=== PATIENT | male | born 1960 | race Two or more races ===

== ENCOUNTER → 2019-11-20 | Outpatient (CLI) | payer BC ==
--- NOTE | 2019-11-20 13:26 | CTL ---
EXAMINATION TYPE: CT Low Dose Lung DATE OF EXAM ORDERED: 11/20/2019 HISTORY: Personal history of tobacco use. Lung cancer screening CT DLP: [address] CTDI: 1.72 mGy Automated exposure control for dose reduction was used. SCREENING VISIT: Initial study COMPARISON: None TECHNIQUE: Low dose computed tomography scan was performed through the chest at 1 mm thick sections a nd reconstructed images in the coronal plane at [address] DIAGNOSTIC QUALITY: Satisfactory FINDINGS: LUNG NODULES: None of significance. Occasional micronodule or tiny calcified nodule/granuloma. For reference to the 3 mm right middle lob e nodule axial image 155 and 3 to 4 mm calcified nodule or granuloma anterior medial right upper lobe axial image 85. LUNGS: COPD: Severity: None Fibrosis: Severity: Mild linear bibasilar Lymph nodes: None Other findings: None BILATERAL PLEURAL SPACE: Effusion: None Calcification: None Thickening: None Pneumothorax: None HEART: Heart Size: Normal Coronary calcification: Mild proximal LAD Pericardial effusion: None OTHER FINDINGS: Upper abdomen: None Bony thorax: None Supraclavicular region: None Other: None IMPRESSION: No suspicious nodules greater than [address] CHEST RECOMMENDATION: Annual low-dose lung screening CT CT LUNG RAD: Lung-Rad 1 Negative
== END | disposition home or self-care (01) ==
LOC: RADCTMAIN 12:55
PROVIDERS: ATTEND Family Medicine
DX: Z12.2 Encounter for screening for malignant neoplasm of respiratory organs (principal); F17.210 Nicotine dependence, cigarettes, uncomplicated

== ENCOUNTER → 2021-10-24 | Outpatient (CLI) | payer BC ==
--- NOTE | 2021-10-24 10:30 | CTL ---
EXAMINATION TYPE: CT Low Dose Lung DATE OF EXAM ORDERED: 10/24/2021 HISTORY: 61-year-old male history of tobacco use. Z87.891 Personal history of nicotine dependence CT DLP: 66.[address] CTDI: 1.8 mGy Automated exposure control for dose reduction was used. SCREENING VISIT: Two-year follow-up COMPARISON: 11/20/2019 TECHNIQUE: Low dose computed tomography scan was performed through the chest with coronal and sagitta l reconstructions. CT DIAGNOSTIC QUALITY: Satisfactory FINDINGS: Heart normal size without pericardial effusion. Mild LAD coronary artery calcifications are present. Borderline ectasia aortic root at 3.5 cm. Conventional arch vessel branching anatomy. No thoracic lymphadenopathy by CT size criteria. Trace bilateral gynecomastia. Mild centrilobular emphysema. Mild biapical pleural parenchymal scarring. Some linear pleural parench ymal scarring also noted at the posterior costophrenic angles, unchanged from prior. No consolidation or pleural effusion. No suspicious greater than 4 mm pulmonary nodule is identified. Visualized upper abdomen shows no gross evaluate. Bones: Mild degenerative disc disease mid to lower thoracic spine. IMPRESSION: 1. LungRADS 1: negative. 2. COPD with mild emphysema and scattered pleural parenchymal scarring. Recommend smoking cessation. CT LUNG RAD AND CT CHEST RECOMMENDATION: Lung-Rad 1 Negative: Continue annual screening with LDCT in 12 months.
== END | disposition home or self-care (01) ==
LOC: RADCTMAIN 07:23
PROVIDERS: ATTEND Family Medicine
DX: Z12.2 Encounter for screening for malignant neoplasm of respiratory organs (principal); J43.9 Emphysema, unspecified; J98.4 Other disorders of lung; Z87.891 Personal history of nicotine dependence
CPT/HCPCS: 71271

== ENCOUNTER 2024-11-06 05:38 | Emergency (ER) | payer BC ==
--- NOTE | 2024-11-06 06:15 | ED ---
Abdominal Pain HPI - General Chief Complaint: Abdominal Pain Stated Complaint: Abd Pain Time Seen by Provider: 11/06/24 06:04 Source: patient Mode of arrival: ambulatory - History of Present Illness Initial Comments: This patient is 64-year-old man who states he has history of previous diverticulitis, and then had onset of lower abdominal pain a bit over a week ago. The patient had gone to see his primary physician, was given diagnosis of diverticulitis and had a week of metronidazole which she completed a couple of days ago. The patient states that he followed that by having an episode of vomiting that he described as yellow also bowel movements similar color. He states that he went back to eating and since that time has been having pain across the upper part of the abdomen and a full feeling. He states that over the past week to 10 days he has only passed a few small bowel movements he described as pellets. He has not had hematemesis. No bloody or tarry stools. No fever or chills noted. There has been no pain or mass in the groin or scrotum. No change in urination MD Complaint: abdominal pain Onset/Timin -: days(s) Location: periumbilical, LLQ, RLQ Radiation: none Migration to: LUQ, RUQ Severity: moderate Quality: cramping, fullness Consistency: intermittent Improves With: nothing Worsens With: eating Associated Symptoms: nausea, constipation - Related Data Home Medications Medication Instructions Recorded Confirmed No Known Home Medications 11/09/24 11/09/24 Allergies Allergy/AdvReac Type Severity Reaction Status Date / Time Penicillins Allergy Anaphylaxis Verified 11/10/24 13:33 Review of Systems ROS Statement: Those systems with pertinent positive or pertinent negative responses have been documented in the HPI. ROS Other: All systems not noted in ROS Statement are negative. Constitutional: Denies: fever, chills Respiratory: Denies: cough, dyspnea Cardiovascular: Denies: chest pain, palpitations Gastrointestinal: Reports: abdominal pain, nausea, vomiting, constipation. Denies: diarrhea, melena, hematochezia Genitourinary: Denies: dysuria, frequency, hematuria, testicular pain, testicular mass Musculoskeletal: Denies: back pain Skin: Denies: rash Neurological: Denies: headache, weakness Past Medical History Past Medical History: GERD/Reflux History of Any Multi-Drug Resistant Organisms: None Reported Past Surgical History: Appendectomy Past Psychological History: No Psychological Hx Reported Smoking Status: Former smoker Past Alcohol Use History: None Reported Past Drug Use History: None Reported General Exam General appearance: alert, in no apparent distress Head exam: Present: atraumatic, normocephalic Eye exam: Present: normal appearance. Absent: scleral icterus, conjunctival injection ENT exam: Present: normal oropharynx Neck exam: Present: normal inspection Respiratory exam: Present: normal lung sounds bilaterally. Absent: respiratory distress, wheezes, rales, rhonchi, stridor, accessory muscle use Cardiovascular Exam: Present: regular rate, normal rhythm, normal heart sounds. Absent: systolic murmur, diastolic murmur, rubs, gallop GI/Abdominal exam: Present: soft. Absent: distended, tenderness, guarding, rebound, rigid, mass, pulsatile mass, hernia Extremities exam: Present: normal inspection, normal capillary refill. Absent: pedal edema, calf tenderness Back exam: Present: normal inspection. Absent: CVA tenderness (R), CVA tenderness (L) Neurological exam: Present: alert Skin exam: Present: warm, dry, intact, normal color. Absent: rash Course Vital Signs 11/06/24 11/06/24 05:39 07:21 Temperature 98.5 F 98.7 F Pulse Rate 103 H 62 Respiratory 18 16 Rate Blood Pressure 156/96 133/83 O2 Sat by Pulse 98 97 Oximetry Medical Decision Making - Medical Decision Making Was pt. sent in by a medical professional or institution (ALONSO Maya, VERIFICATION LEAD, urgent care, hospital, or [facility]...) When possible be specific @ -[No] Did you speak to anyone other than the patient for history (EMS, parent, family, police, friend...)? What history was obtained from this source @ -[No] Did you review nursing and triage notes (agree or disagree)? Why? @ -[I reviewed and agree with nursing and triage notes] Were old charts reviewed (outside hosp., previous admission, EMS record, old EKG, old radiological studies, urgent care reports/EKG's, [facility] records)? Report findings @ -[No old charts were reviewed] Differential Diagnosis (chest pain, altered mental status, abdominal pain women, abdominal pain men, vaginal bleeding, weakness, fever, dyspnea, syncope, headache, dizziness, GI bleed, back pain, seizure, CVA, palpatations, mental health, musculoskeletal)? @ -[Differential Abdominal Pain Men: Appendicitis, cholecystitis, diverticulosis, ischemic bowel, pancreatitis, hepatitis, UTI, gastroenteritis, AAA, incarcerated hernia, bowel obstruction, constipation, inflammatory bowel, hepatitis, peptic ulcer disease, splenic infarction, perforated viscus, testicular torsion, this is not meant to be an all-inclusive list EKG interpreted by me (3pts min.). @ -[As above] X-rays interpreted by me (1pt min.). @ -[None done] CT interpreted by me (1pt min.). @ -[None done] U/S interpreted by me (1pt. min.). @ -[None done] What testing was considered but not performed or refused? (CT, X-rays, U/S, labs)? Why? @ -[CT scan was considered shared decision making with the patient was used and patient will defer, returning if he has worsening or no resolution of symptoms What meds were considered but not given or refused? Why? @ -[None] Did you discuss the management of the patient with other professionals (professionals i.e. , PA, VERIFICATION LEAD, lab, RT, psych nurse, manager social responsibility, infertility medical assistant, teacher, commanding officer traffic division, caser in)? Give summary @ -[No] Was smoking cessation discussed for >3mins.? @ -[No] Was critical care preformed (if so, how long)? @ -[No] Were there social determinants of health that impacted care today? How? (Homelessness, low income, unemployed, alcoholism, drug addiction, transportat ion, low edu. Level, literacy, decrease access to med. care, residential, rehab)? @ -[No] Was there de-escalation of care discussed even if they declined (Discuss DNR or withdrawal of care, Hospice)? DNR status @ -[No] What co-morbidities impacted this encounter? (DM, HTN, Smoking, COPD, CAD, Cancer, CVA, ARF, Chemo, Hep., AIDS, mental health diagnosis, sleep apnea, morbid obesity)? @ -[None] Was patient admitted / discharged? Hospital course, mention meds given and route, prescriptions, significant lab abnormalities, going to OR and other pertinent info. @ -[Patient is 64-year-old man presenting with abdominal pain. He does feel better with treatment here and would like to go home. We discussed possible etiologies as well as possibility of CT scan, and at this point he feels better and would like to go home. discussed appropriate further care and follow-up as well as return parameters. Undiagnosed new problem with uncertain prognosis? @ -[No] Drug Therapy requiring intensive monitoring for toxicity (Heparin, Nitro, Insulin, Cardizem)? @ -[No] Were any procedures done? @ -[No] Diagnosis/symptom? @ -[Acute abdominal pain Acute, or Chronic, or Acute on Chronic? @ -[Acute Uncomplicated (without systemic symptoms) or Complicated (systemic symptoms)? @ -[Uncomplicated Side effects of treatment? @ -[No] Exacerbation, Progression, or Severe Exacerbation? @ -[No] Poses a threat to life or bodily function? How? (Chest pain, [place], [place], pneumonia, PE, COPD, DKA, ARF, appy, cholecystitis, CVA, Diverticulitis, Homicidal, Suicidal, threat to staff... and all critical care pts) @ -[No] All treatments are based on ideal body weight as in ED triage - Lab Data Result diagrams: 11/06/24 06:00 11/06/24 06:00 Lab Results 11/06/24 11/06/24 11/06/24 Range/Units 06:00 06:00 06:00 WBC 10.4 (3.8-10.6) k/uL RBC 5.02 (4.30-5.90) m/uL Hgb 15.2 (13.0-17.5) gm/dL Hct 45.6 (39.0-53.0) % MCV 90.7 (80.0-100.0) fL MCH 30.3 (25.0-35.0) pg MCHC 33.4 (31.0-37.0) g/dL RDW 12.0 (11.5-15.5) % Plt Count 395 (150-450) k/uL MPV 6.6 Neutrophils % 78 % Lymphocytes % 13 % Monocytes % 5 % Eosinophils % 1 % Basophils % 0 % Neutrophils # 8.1 H (1.3-7.7) k/uL Lymphocytes # 1.3 (1.0-4.8) k/uL Monocytes # 0.5 (0-1.0) k/uL Eosinophils # 0.1 (0-0.7) k/uL Basophils # 0.0 (0-0.2) k/uL Sodium 135 L (137-145) mmol/L Potassium 4.3 (3.5-5.1) mmol/L Chloride 104 (98-107) mmol/L Carbon Dioxide 28 (22-30) mmol/L Anion Gap 3 mmol/L BUN 14 (9-20) mg/dL Creatinine 0.83 (0.66-1.25) mg/dL Est GFR (CKD-EPI)AfAm >90 (>60 ml/min/1.73 sqM) Est GFR (CKD-EPI)NonAf >90 (>60 ml/min/1.73 sqM) Glucose 102 H (74-99) mg/dL Plasma Lactic Acid Roe 0.7 (0.7-2.0) mmol/L Calcium 9.6 (8.4-10.2) mg/dL Total Bilirubin 0.7 (0.2-1.3) mg/dL AST 21 (17-59) U/L ALT 20 (4-49) U/L Alkaline Phosphatase 51 (38-126) U/L C-Reactive Protein 0.8 (<1.0) mg/dL Total Protein 7.0 (6.3-8.2) g/dL Albumin 4.3 (3.5-5.0) g/dL Amylase 69 (30-110) U/L Lipase 159 (23-300) U/L Disposition Clinical Impression: Abdominal pain Disposition: HOME SELF-CARE Condition: Good Instructions (If sedation given, give patient instructions): Abdominal Pain (ED) Is patient prescribed a controlled substance at d/c from ED?: No Referrals: Naseem Chung MD [Primary Care Provider] - 1-2 days Didi Foster MD [STAFF PHYSICIAN] - 1-2 days
[2024-11-06 06:16] LABS: Basophils % (A) 0 %; Eosinophils # (A) 0.1 k/uL (0-0.7); Eosinophils % (A) 1 %; HCT 45.6 % (39.0-53.0); HGB 15.2 gm/dL (13.0-17.5); Lymphocytes # (A) 1.3 k/uL (1.0-4.8); Lymphocytes % (A) 13 %; MCH 30.3 pg (25.0-35.0); MCHC 33.4 g/dL (31.0-37.0); MCV 90.7 fL (80.0-100.0); Mean Platelet Volume 6.6; Monocytes # (A) 0.5 k/uL (0-1.0); Monocytes % (A) 5 %; Neutrophils # (A) 8.1 k/uL (1.3-7.7); Neutrophils % (A) 78 %; Platelet Count 395 k/uL (150-450); RBC 5.02 m/uL (4.30-5.90); WBC 10.4 k/uL (3.8-10.6)
[2024-11-06 06:38] LABS: ALT 20 U/L (4-49); AST 21 U/L (17-59); African American GFR (CKD) >90 (>60 ml/min/1.73 sqM); Albumin 4.3 g/dL (3.5-5.0); Alkaline Phosphatase 51 U/L (38-126); Amylase 69 U/L (30-110); Anion Gap 3 mmol/L; Blood Urea Nitrogen 14 mg/dL (9-20); C Reactive Protein 0.8 mg/dL (<1.0); Calcium 9.6 mg/dL (8.4-10.2); Carbon Dioxide 28 mmol/L (22-30); Chloride 104 mmol/L (98-107); Glucose 102 mg/dL (74-99); Lipase 159 U/L (23-300); Non-African American GFR(CKD) >90 (>60 ml/min/1.73 sqM); Potassium 4.3 mmol/L (3.5-5.1); Sodium 135 mmol/L (137-145); Total Bilirubin 0.7 mg/dL (0.2-1.3)
[2024-11-06] MEDS: MAGNESIUM CITRATE 296 ML BOTTLE PO ONE (07:20)
[2024-11-06 07:23] VITALS: BP 133/83; PULSE 62; RESP 16; TEMP 98.7
== END 2024-11-06 07:28 | disposition home or self-care (01) ==
LOC: EC 05:38
DX: R10.31 Right lower quadrant pain (principal); R10.32 Left lower quadrant pain; R10.33 Periumbilical pain; Z88.0 Allergy status to penicillin; Z87.891 Personal history of nicotine dependence
CPT/HCPCS: 36415; 80053; 82150; 83605; 83690; 85025; 86140; 99284

== ENCOUNTER 2024-11-09 10:50 | Inpatient (IN) | payer BC ==
--- NOTE | 2024-11-09 10:56 | ED ---
General Adult HPI - General Source: patient Mode of arrival: ambulatory Limitations: no limitations <Vonda Calderon - Last Filed: 11/09/24 10:57> - General Source: patient, RN notes reviewed, old records reviewed <Arnoldo Ospina - Last Filed: 11/09/24 15:10> - General Stated complaint: Hypertension Time Seen by Provider: 11/09/24 10:56 - History of Present Illness Initial comments: Quick note: 64-year-old male presents to the emergency department sent in by his primary care provider's office. He was sent in for concerns of possible bowel obstruction. He reports that over the past week he has been having significant vomiting and difficulty tolerating oral intake. Patient admits to abdominal discomfort. (Vonda Calderon) Patient is a 64-year-old male presents emergency department complaining of abdominal pain. Patient has also been having intractable nausea and vomiting. Has been worse over the last 3 days but seems like he has been having issues for the last few weeks. Originally thought it might be diverticulitis and was placed on antibiotic by his PCP. States that symptoms did not improve with this. He is continuing to have nausea and vomiting. States he is noticing reduced caliber stools and is only having "little pellets" for the last few days. No diarrhea. Denies any blood in his vomit or stool. States he has had colonoscopies in the past which have been unremarkable. Last within the last few years. Endorses generalized abdominal discomfort and distention. Denies any chest pain or shortness of breath. Denies fevers or chills. Patient originally seen as a quick note. I evaluated patient when he was placed in a room. (Arnoldo Ospina) - Related Data Previous Rx's Medication Instructions Recorded Famotidine [Pepcid] 20 mg PO BID #14 tablet 11/06/24 Allergies Allergy/AdvReac Type Severity Reaction Status Date / Time Penicillins Allergy Anaphylaxis Verified 11/09/24 10:54 Review of Systems ROS Other: All systems not noted in ROS Statement are negative. <Vonda Calderon - Last Filed: 11/09/24 10:57> ROS Other: All systems not noted in ROS Statement are negative. <Arnoldo Ospina - Last Filed: 11/09/24 15:10> ROS Statement: Those systems with pertinent positive or pertinent negative responses have been documented in the HPI. Review of Systems: CONST: Denies fever EYES: Denies blurry vision ENT: Denies nasal congestion C/V: Denies Chest pain RESP: Denies shortness of breath GI: Endorses abdominal pain : Denies dysuria SKIN: Denies rash. MSK: Denies joint pain. NEURO: Denies headache (Arnoldo Ospina) Past Medical History Past Medical History: GERD/Reflux History of Any Multi-Drug Resistant Organisms: None Reported Past Surgical History: Appendectomy Past Psychological History: No Psychological Hx Reported Smoking Status: Former smoker Past Alcohol Use History: None Reported Past Drug Use History: None Reported <Vonda Calderon - Last Filed: 11/09/24 10:57> General Exam Limitations: no limitations <Vonda Calderon - Last Filed: 11/09/24 10:57> <Arnoldo Ospina - Last Filed: 11/09/24 15:10> - General Exam Comments Initial Comments: Visual Physical Exam Vital signs reviewed General: Well-appearing, nontoxic, no acute distress. Head: Normocephalic, atraumatic Eyes: PERRLA, EOMI ENT: Airway patent Chest: Nonlabored breathing Skin: No visual rash, normal skin tone Neuro: Alert and oriented 3 Musculoskeletal: No gross abnormalities (Vonda Calderon) General: Appears in mild to moderate distress secondary to abdominal pain. HEAD: Normal with no signs of head trauma. EYES: EOMI ENT: Hearing grossly intact, normal oropharynx. RESPIRATORY: Clear breath sounds bilaterally. No wheezes, rales, or rhonchi. C/V: Regular rate and rhythm. S1 and S2 auscultated, no edema, peripheral pulses 2+ and intact throughout ABD: Abdomen soft, with generalized distention and nonfocal tenderness to palpation. No guarding or rebound tenderness. No peritoneal signs. EXT: no obvious deformity SKIN: No rashes or lesions observed on exposed skin. NEURO: Alert and oriented x 4. (Arnoldo Ospina) Course Vital Signs 11/09/24 10:51 Temperature 99 F Pulse Rate 112 H Respiratory 20 Rate Blood Pressure 156/94 O2 Sat by Pulse 100 Oximetry Medical Decision Making <Vonda Calderon - Last Filed: 11/09/24 10:57> - Lab Data Result diagrams: 11/09/24 11:30 11/09/24 11:30 <[email or web address] - Last Filed: 11/09/24 15:10> - Medical Decision Making Quick note preformed and electronically signed by ALONSO Hammer-Azalia (Vonda Calderon) Was pt. sent in by a medical professional or institution (ALONSO Maya, NEUROLOGY PHYSICIAN, urgent care, hospital, or skilled nursing...) When possible be specific @ -No Did you speak to anyone other than the patient for history (EMS, parent, family, police, friend...)? What history was obtained from this source @ -No Did you review nursing and triage notes (agree or disagree)? Why? @ -I reviewed and agree with nursing and triage notes Were old charts reviewed (outside hosp., previous admission, EMS record, old EKG, old radiological studies, urgent care reports/EKG's, skilled nursing records)? Report findings @ -No old charts were reviewed Differential Diagnosis (chest pain, altered mental status, abdominal pain women, abdominal pain men, vaginal bleeding, weakness, fever, dyspnea, syncope, headache, dizziness, GI bleed, back pain, seizure, CVA, palpatations, mental health, musculoskeletal)? @ -Differential Abdominal Pain Men: Appendicitis, cholecystitis, diverticulosis, ischemic bowel, pancreatitis, hepatitis, UTI, gastroenteritis, AAA, incarcerated hernia, bowel obstruction, constipation, inflammatory bowel, hepatitis, peptic ulcer disease, splenic infarction, perforated viscus, testicular torsion, this is not meant to be an all-inclusive list EKG interpreted by me (3pts min.). @ -None none X-rays interpreted by me (1pt min.). @ -None done CT interpreted by me (1pt min.). @ -CT reveals possible sigmoid colon mass with partial small bowel obstruction and findings as well as colitis. U/S interpreted by me (1pt. min.). @ -None done What testing was considered but not performed or refused? (CT, X-rays, U/S, labs)? Why? @ -None What meds were considered but not given or refused? Why? @ -None Did you discuss the management of the patient with other professionals (professionals i.e. ALONSO Maya, NEUROLOGY PHYSICIAN, lab, RT, psych nurse, social services aide, copy center operator, teacher, natural resource officer, field nurse case manager)? Give summary @ -Discussed with patient's surgeon who his complete his colonoscopy is, Dr. Yang who was in agreement with plan with admission medicine, antibiotics, n.p.o., NG tube. Discussed with the admitting provider, Dr. Crawford who accepts the admission. Was smoking cessation discussed for >3mins.? @ -No Was critical care preformed (if so, how long)? @ -No Were there social determinants of health that impacted care today? How? (Homelessness, low income, unemployed, alcoholism, drug addiction, transportation, low edu. Level, literacy, decrease access to med. care, group home, rehab)? @ -No Was there de-escalation of care discussed even if they declined (Discuss DNR or withdrawal of care, Hospice)? DNR status @ -No What co-morbidities impacted this encounter? (DM, HTN, Smoking, COPD, CAD, Cancer, CVA, ARF, Chemo, Hep., AIDS, mental health diagnosis, sleep apnea, morbid obesity)? @ -None Was patient admitted / discharged? Hospital course, mention meds given and route, prescriptions, significant lab abnormalities, going to OR and other pertinent info. @ -Based on patient's presentation and physical exam, presents with abdominal distention, nausea and vomiting, abdominal pain that is intractable. Vital signs within acceptable limits. Patient originally seen as a quick note worked up in the waiting room when I evaluated patient was placed in a hallway bed. Labs returned remarkable for no obvious significant findings. Likely some dehydration. CT abdomen pelvis reveals a possible sigmoid colon mass, colitis, as well as findings consistent with some degree of small bowel obstruction. I updated The patient. He will be started on IV fluids, IV antibiotics, and given IV Zofran, pain meds. NG tube will be placed due to the distention. Patient was in agreement this plan. Discussed with patient's surgeon who his complete his colonoscopy is, Dr. Yang who was in agreement with plan with admission medicine, antibiotics, n.p.o., NG tube. Discussed with the admitting provider, Dr. Crawford who accepts the admission. Undiagnosed new problem with uncertain prognosis? @ -No Drug Therapy requiring intensive monitoring for toxicity (Heparin, Nitro, Insulin, Cardizem)? @ -No Were any procedures done? @ -No Diagnosis/symptom? @ -Colitis, partial small bowel obstruction, possible sigmoid colon mass Acute, or Chronic, or Acute on Chronic? @ -Acute Uncomplicated (without systemic symptoms) or Complicated (systemic symptoms)? @ -Complicated Side effects of treatment? @ -No Exacerbation, Progression, or Severe Exacerbation? @ -No Poses a threat to life or bodily function? How? (Chest pain, [place], [place], pneumonia, PE, COPD, DKA, ARF, appy, cholecystitis, CVA, Diverticulitis, Homicidal, Suicidal, threat to staff... and all critical care pts) @ -Yes (Arnoldo Ospina) - Lab Data Lab Results 11/09/24 11/09/24 11/09/24 Range/Units 11:30 11:30 11:30 WBC 9.4 (3.8-10.6) k/uL RBC 5.84 (4.30-5.90) m/uL Hgb 17.6 H (13.0-17.5) gm/dL Hct 52.3 (39.0-53.0) % MCV 89.6 (80.0-100.0) fL MCH 30.1 (25.0-35.0) pg MCHC 33.6 (31.0-37.0) g/dL RDW 11.9 (11.5-15.5) % Plt Count 451 H (150-450) k/uL MPV 7.1 Neutrophils % (Manual) 86 % Lymphocytes % (Manual) 5 % Monocytes % (Manual) 9 % Neutrophils # (Manual) 8.08 H (1.3-7.7) k/uL Lymphocytes # (Manual) 0.47 L (1.0-4.8) k/uL Monocytes # (Manual) 0.85 (0-1.0) k/uL Nucleated RBCs 0 (0-0) /100 WBC Manual Slide Review Performed Hypersegmented Neuts Present RBC Morphology Normal Sodium 136 L (137-145) mmol/L Potassium 4.9 (3.5-5.1) mmol/L Chloride 95 L (98-107) mmol/L Carbon Dioxide 28 (22-30) mmol/L Anion Gap 13 mmol/L BUN 28 H (9-20) mg/dL Creatinine 0.92 (0.66-1.25) mg/dL Est GFR (CKD-EPI)AfAm >90 (>60 ml/min/1.73 sqM) Est GFR (CKD-EPI)NonAf 88 (>60 ml/min/1.73 sqM) Glucose 119 H (74-99) mg/dL Plasma Lactic Acid Roe 1.8 (0.7-2.0) mmol/L Calcium 10.2 (8.4-10.2) mg/dL Total Bilirubin 0.8 (0.2-1.3) mg/dL AST 27 (17-59) U/L ALT 21 (4-49) U/L Alkaline Phosphatase 66 (38-126) U/L Total Protein 8.3 H (6.3-8.2) g/dL Albumin 5.0 (3.5-5.0) g/dL Amylase 65 (30-110) U/L Lipase 136 (23-300) U/L Disposition <Vonda Calderon - Last Filed: 11/09/24 10:57> Time of Disposition: 14:43 <Arnoldo Ospina - Last Filed: 11/09/24 15:10> Clinical Impression: Partial small bowel obstruction, Colitis Disposition: ADMITTED IP TO THIS HOSP Condition: Stable Referrals: Naseem Chung MD [Primary Care Provider] - 1-2 days
[2024-11-09 11:56] LABS: ALT 21 U/L (4-49); AST 27 U/L (17-59); African American GFR (CKD) >90 (>60 ml/min/1.73 sqM); Alkaline Phosphatase 66 U/L (38-126); Amylase 65 U/L (30-110); Anion Gap 13 mmol/L; Blood Urea Nitrogen 28 mg/dL (9-20); Calcium 10.2 mg/dL (8.4-10.2); Carbon Dioxide 28 mmol/L (22-30); Chloride 95 mmol/L (98-107); Glucose 119 mg/dL (74-99); Lipase 136 U/L (23-300); Non-African American GFR(CKD) 88 (>60 ml/min/1.73 sqM); Potassium 4.9 mmol/L (3.5-5.1); Sodium 136 mmol/L (137-145); Total Bilirubin 0.8 mg/dL (0.2-1.3); Total Protein 8.3 g/dL (6.3-8.2)
[2024-11-09 12:02] LABS: HCT 52.3 % (39.0-53.0); HGB 17.6 gm/dL (13.0-17.5); MCH 30.1 pg (25.0-35.0); MCHC 33.6 g/dL (31.0-37.0); MCV 89.6 fL (80.0-100.0); Mean Platelet Volume 7.1; Platelet Count 451 k/uL (150-450); RBC 5.84 m/uL (4.30-5.90); RDW 11.9 % (11.5-15.5); WBC 9.4 k/uL (3.8-10.6)
[2024-11-09 12:19] LABS: Lymphocytes # (M) 0.47 k/uL (1.0-4.8); Monocytes # (M) 0.85 k/uL (0-1.0); Neutrophils # (M) 8.08 k/uL (1.3-7.7); Neutrophils % (M) 86 %; Nucleated Red Blood Cells 0 /100 WBC (0-0); Total Cells Counted 100
[2024-11-09 12:20] LABS: Hypersegmented Neutrophils Present; RBC Morphology Normal
--- NOTE | 2024-11-09 13:17 | CT ---
EXAMINATION TYPE: CT abdomen pelvis w con DATE OF EXAM: 11/09/2024 12:30 PM COMPARISON: CT abdomen pelvis most recent from 01/07/2016 CLINICAL INDICATION: Male, 64 years old with history of abdominal pain; vomiting TECHNIQUE: Axial CT abdomen pelvis w con;Sagittal and coronal reformats were created on a separate w orkstation. Contrast used:100 mL of Isovue 300 with IV Contrast, (none if empty) Oral contrast used: without Oral Contrast (none if empty) CT DLP: 569.1 mGycm, Automated exposure control for dose reduction was used. FINDINGS: LOWER CHEST: Unremarkable ABDOMEN LIVER: Appearing liver cysts. GALLBLADDER AND BILE DUCTS: Unremarkable. PANCREAS: Unremarkable. SPLEEN: Unremarkable. ADRENAL GLANDS: Unremarkable. KIDNEYS AND URETERS: No evidence of hydronephrosis or renal calculus. The ureters are unremarkable. S imple appearing bilateral renal cysts. PELVIS BLADDER: No evidence for wall thickening or mass given limitations of exam. REPRODUCTIVE: Unremarkable. ABDOMEN & PELVIS STOMACH AND BOWEL: Small hiatal hernia. Circumferential wall thickening of the sigmoid colon extendin g 8.8 cm with villarreal measuring up to 11 mm upstream this results in dilation of the large and small ulices wel upstream suggesting some degree of obstruction correlate with stool output. Possible mass present series 202 image 35 series 203 image 82 measuring 27 x 21 mm PERITONEUM/RETROPERITONEUM: No evidence of pneumoperitoneum or free fluid. VASCULATURE: No evidence of aortic aneurysm. MUSCULOSKELETAL: No acute osseous abnormalities LYMPH NODES: No gross evidence for lymphadenopathy. SOFT TISSUE/ABDOMINAL WALL: Unremarkable IMPRESSION: 1. Possible mass present series with superimposed colitis involving the sigmoid colon with upstream dilation of small and large bowel suggesting some degree of obstruction correlate with stool output. Short-term follow-up CT recommended to ensure resolution or a short-term follow-up colonoscopy if not recently performed. 2. Small hiatal hernia. [facility], , 11/09/2024 1:15 PM
[2024-11-09] MEDS ORDERED: NALOXONE 0.4 MG/ML 1 ML VIAL IV PRN (14:40)
[2024-11-09] MEDS ORDERED: ONDANSETRON 4 MG/2 ML VIAL IVP PRN (14:40)
[2024-11-09] MEDS: ONDANSETRON 4 MG/2 ML VIAL IVP STA (15:41)
[2024-11-09] MEDS: KETOROLAC 15 MG/ML 1 ML VIAL IVP STA (15:42)
[2024-11-09] MEDS: PANTOPRAZOLE 40 MG/10 ML VIAL IVP STA (15:42)
[2024-11-09] MEDS: LACTATED RINGERS 1,000 ML BAG IV STA (15:43)
--- NOTE | 2024-11-09 16:05 | P.HPIM ---
History of Present Illness H&P Date: 11/09/24 Chief Complaint: abdominal pain, nausea, vomiting 64-year-old man with medical history of GERD, diverticulitis presented for evaluation of abdominal pain, nausea, vomiting. Patient says that approximately 2 weeks ago he started develop some left lower quadrant abdominal pain that felt similar to the previous time that he had diverticulitis. At that time he had associated symptoms of nausea, vomiting. He was prescribed some antibiotics from his primary care physician and said he felt a little bit better after taking these, is not sure which antibiotics these were. However, after discontinuation, patient started to feel ill again. He went to the emergency room on 11/06 for similar complaints and was discharged with famotidine and instructed follow-up with his primary care physician as well as GI. Unfortunately his symptoms progressed in the last 72 hours prompting patient to return to the emergency room. He reports nausea, vomiting, sweats, weight loss, poor appetite. He did have a bowel movement but it was very small in caliber. He feels bloated. In the emergency room, patient was afebrile, 156/94, heart rate 112, 100% on room air. CBC shows polycythemia to 17.6, thrombocytosis to 451. Metabolic panel shows sodium of 136, chloride of 95, BUN of 28. Liver function test show total protein of 8.3. Lipase is 136. Abdominal CT shows possible mass present with superimposed colitis involving the sigmoid colon with upstream dilation of the small and large bowel suggesting some degree of obstruction. Case was discussed with the emergency room and decision was made to admit the patient for further evaluation. Surgery was consulted. All Systems reviewed and pertinent positives and negatives noted in HPI, all other symptoms are negative Gen: In NAD, non-toxic HEENT: normocephalic, atraumatic, hearing acuity is intant, mucous membranes m oist CVS: perfusing all extremities well, no pitting edema, Respiratory: symmetric chest expansion, no accessory muscle use, GI: soft, NTTP, ND, : no suprapubic tenderness, no CVA tenderness MSK/Derm: no rashes, cyanosis Neuro: CN II-XII intact, no motor weakness, Psych: cooperative, euthymic mood, judgment and insight is intact Labs and imaging as above Assessment/plan: Sigmoid colitis Possible colonic mass Partial large bowel obstruction -Admit as an inpatient -Antibiotics with ciprofloxacin, Flagyl -General Surgery consult for colonoscopy with biopsy -Stool culture pending -IV fluids -NG tube, n.p.o. History of GERD -PPI daily Patient is full code Past Medical History Past Medical History: GERD/Reflux History of Any Multi-Drug Resistant Organisms: None Reported Past Surgical History: Appendectomy Past Psychological History: No Psychological Hx Reported Smoking Status: Former smoker Past Alcohol Use History: None Reported Past Drug Use History: None Reported Medications and Allergies Home Medications Medication Instructions Recorded Confirmed Type No Known Home Medications 11/09/24 11/09/24 History Allergies Allergy/AdvReac Type Severity Reaction Status Date / Time Penicillins Allergy Anaphylaxis Verified 11/09/24 15:10 Physical Exam Osteopathic Statement: *. No significant issues noted on an osteopathic structural exam other than those noted in the History and Physical/Consult. Vitals: Vital Signs Temp Pulse Resp BP Pulse Ox 11/09/24 10:51 99 F 112 H 20 156/94 100 Intake and Output 11/09/24 11/09/24 11/09/24 06:59 14:59 22:59 Other: Weight 68.039 kg Results CBC & Chem 7: 11/09/24 11:30 11/09/24 11:30 Labs: Abnormal Lab Results - Last 24 Hours (Table) 11/09/24 11/09/24 Range/Units 11:30 11:30 Hgb 17.6 H (13.0-17.5) gm/dL Plt Count 451 H (150-450) k/uL Neutrophils # (Manual) 8.08 H (1.3-7.7) k/uL Lymphocytes # (Manual) 0.47 L (1.0-4.8) k/uL Sodium 136 L (137-145) mmol/L Chloride 95 L (98-107) mmol/L BUN 28 H (9-20) mg/dL Glucose 119 H (74-99) mg/dL Total Protein 8.3 H (6.3-8.2) g/dL
[2024-11-09] MEDS: LEVOFLOXACIN 500MG-D5W PMX 500 MG in DEXTROSE/WATER 1 100ML.BAG IVPB SCH (17:21)
[2024-11-09] MEDS: LACTATED RINGERS 1,000 ML IV ONE (17:24)
[2024-11-09] MEDS: metroNIDAZOLE-NS PMX 500 MG in SALINE 1 100ML.BAG IVPB SCH (17:27)
--- NOTE | 2024-11-09 17:40 | XR ---
EXAMINATION TYPE: XR chest 1V confirm line plcmt DATE OF EXAM: 11/09/2024 5:16 PM COMPARISON: Chest radiographs from 1321 CLINICAL INDICATION: Male, 64 years old with history of NGT placement confirmation; [facility] TECHNIQUE: XR chest 1V confirm line plcmt Frontal view of the chest. FINDINGS: Lungs/Pleura: There is no evidence of pleural effusion, focal consolidation, or pneumothorax. Pulmonary vascularity: Unremarkable. Heart/mediastinum: Cardiomediastinal silhouette is unremarkable. Musculoskeletal: No acute osseous pathology. Other findings: None Lines/Tubes: Nasogastric tube with side-port projecting over the distal esophagus. IMPRESSION: Nasogastric tube side-port in the distal esophagus advance a 10 cm recommended for optimal placement. No acute cardiopulmonary disease/process. [facility], , 11/09/2024 5:38 PM
[2024-11-09] MEDS: MORPHINE SULFATE 4 MG/ML SYRINGE IV PRN (17:51)
--- NOTE | 2024-11-09 18:23 | XR ---
EXAMINATION TYPE: XR chest 1V confirm line plcmt DATE OF EXAM: 11/09/2024 5:56 PM COMPARISON: Chest radiographs from 11/09/2024 CLINICAL INDICATION: Male, 64 years old with history of NGT advanced, confirm placement; [facility] TECHNIQUE: XR chest 1V confirm line plcmt Frontal view of the chest. FINDINGS: Lungs/Pleura: There is no evidence of pleural effusion, focal consolidation, or pneumothorax. Pulmonary vascularity: Unremarkable. Heart/mediastinum: Cardiomediastinal silhouette is unremarkable. Musculoskeletal: No acute osseous pathology. Lines/Tubes: Endotracheal tube side-porrt at the gastroesophageal junction. IMPRESSION: Nasogastric tube should be advanced 7 cm for optimal placement. [facility], , 11/09/2024 6:21 PM
[2024-11-09] MEDS: CIPROFLOXACIN/DEXTROSE PMX 400 MG in DEXTROSE/WATER 1 200ML.BAG IVPB SCH (18:39)
[2024-11-10] MEDS: SODIUM CHLORIDE 0.9% 1,000 ML IV SCH (06:32)
--- NOTE | 2024-11-10 07:47 | P.GSCN ---
History of Present Illness Consult date: 11/10/24 Reason for Consult: Colon obstruction History of present illness: 64-year-old male known to our service. Patient with progressive complaints of abdominal bloating and pain. Decreased bowel function. CAT scan shows partial colonic obstruction at the sigmoid colon. Patient was treated for possible diverticulitis with antibiotics by his primary care physician. Had a colonoscopy apparently a little over 1 year ago by myself I cannot find that report it was performed at [facility]. Per patient no definite abnormalities were identified. White blood cell count is normal. Patient appears nontoxic. Review of Systems The patient denies any acute changes in vision or hearing, no dysphagia or marco a nophagia, no chest pain or shortness of breath, no dysuria or hematuria, no headache, no runny nose, no rectal bleeding or melena, no unexplained weight loss Past Medical History Past Medical History: GERD/Reflux History of Any Multi-Drug Resistant Organisms: None Reported Past Surgical History: Appendectomy Past Psychological History: No Psychological Hx Reported Smoking Status: Former smoker Past Alcohol Use History: None Reported Past Drug Use History: None Reported Medications and Allergies Home Medications Medication Instructions Recorded Confirmed Type No Known Home Medications 11/09/24 11/09/24 History Allergies Allergy/AdvReac Type Severity Reaction Status Date / Time Penicillins Allergy Anaphylaxis Verified 11/09/24 15:10 Surgical - Exam Vital Signs Temp Pulse Resp BP Pulse Ox 99 F 112 H 20 156/94 100 11/09/24 10:51 11/09/24 10:51 11/09/24 10:51 11/09/24 10:51 11/09/24 10:51 Physical exam: General: Well-developed, well-nourished HEENT: Normocephalic, sclerae nonicteric Abdomen: Distended, mild diffuse tenderness Extremities: No edema Neuro: Alert and oriented Results - Labs 11/09/24 11:30 11/09/24 11:30 Abnormal Lab Results - Last 24 Hours (Table) 11/09/24 11/09/24 Range/Units 11:30 11:30 Hgb 17.6 H (13.0-17.5) gm/dL Plt Count 451 H (150-450) k/uL Neutrophils # (Manual) 8.08 H (1.3-7.7) k/uL Lymphocytes # (Manual) 0.47 L (1.0-4.8) k/uL Sodium 136 L (137-145) mmol/L Chloride 95 L (98-107) mmol/L BUN 28 H (9-20) mg/dL Glucose 119 H (74-99) mg/dL Total Protein 8.3 H (6.3-8.2) g/dL Diabetes panel 11/09/24 Range/Units 11:30 Sodium 136 L (137-145) mmol/L Potassium 4.9 (3.5-5.1) mmol/L Chloride 95 L (98-107) mmol/L Carbon Dioxide 28 (22-30) mmol/L BUN 28 H (9-20) mg/dL Creatinine 0.92 (0.66-1.25) mg/dL Glucose 119 H (74-99) mg/dL Calcium 10.2 (8.4-10.2) mg/dL AST 27 (17-59) U/L ALT 21 (4-49) U/L Alkaline Phosphatase 66 (38-126) U/L Total Protein 8.3 H (6.3-8.2) g/dL Albumin 5.0 (3.5-5.0) g/dL Calcium panel 11/09/24 Range/Units 11:30 Calcium 10.2 (8.4-10.2) mg/dL Albumin 5.0 (3.5-5.0) g/dL Pituitary panel 11/09/24 Range/Units 11:30 Sodium 136 L (137-145) mmol/L Potassium 4.9 (3.5-5.1) mmol/L Chloride 95 L (98-107) mmol/L Carbon Dioxide 28 (22-30) mmol/L BUN 28 H (9-20) mg/dL Creatinine 0.92 (0.66-1.25) mg/dL Glucose 119 H (74-99) mg/dL Calcium 10.2 (8.4-10.2) mg/dL Adrenal panel 11/09/24 Range/Units 11:30 Sodium 136 L (137-145) mmol/L Potassium 4.9 (3.5-5.1) mmol/L Chloride 95 L (98-107) mmol/L Carbon Dioxide 28 (22-30) mmol/L BUN 28 H (9-20) mg/dL Creatinine 0.92 (0.66-1.25) mg/dL Glucose 119 H (74-99) mg/dL Calcium 10.2 (8.4-10.2) mg/dL Total Bilirubin 0.8 (0.2-1.3) mg/dL AST 27 (17-59) U/L ALT 21 (4-49) U/L Alkaline Phosphatase 66 (38-126) U/L Total Protein 8.3 H (6.3-8.2) g/dL Albumin 5.0 (3.5-5.0) g/dL Assessment and Plan (1) Colon obstruction Narrative/Plan: 64-year-old male with partial colonic obstruction by CAT scan. Etiology unclear. Will proceed with flexible sigmoidoscopy at this time. Patient may require sigmoid resection. Current Visit: Yes Status: Acute Code(s): K56.609 - UNSP INTESTNL OBST, UNSP TO PARTIAL VERSUS COMPLETE OBST SNOMED Code(s): 83516683
--- NOTE | 2024-11-10 08:21 | P.PCN ---
Date of Procedure: 11/10/24 Procedure(s) Performed: PREOPERATIVE DIAGNOSIS: Partial colonic obstruction POSTOPERATIVE DIAGNOSIS: Same, diverticulosis PROCEDURE: Sigmoidoscopy ANESTHESIA: MAC SURGEON: Luke Yang M.D. SPECIMENS: None ENDOSCOPIC PROCEDURE: The patient was placed on the endoscopy table in the left decubitus position. The Olympus colonoscope was inserted into the anus and passed under direct visualization to the site of obstruction. At the transition point there was some edematous mucosa. No ulceration of the mucosa was visualized. Unclear whether this represented an atypical malignancy or diverticular change. The scope was able to be passed through that area with some challenges into the wide open bilious stool stained descending colon. Air was evacuated. The entirety of the sigmoid colon appeared somewhat narrowed and less distensible as normal. A few scattered diverticular orifices were seen th roughout the sigmoid colon. Some hard stool in the rectum was evacuated manually. Digital rectal examination was normal. The patient was taken to the recovery room in stable condition per anesthesia guidelines. RECOMMENDATIONS: Will discuss endoscopic findings with patient. The patient's CAT scan particularly on the coronal images does suggest the potential for the site of obstruction being secondary to mass lesion. Given the chronicity of his symptoms and the outpatient trial of antibiotics without improvement I would favor surgical intervention at this time. Discussed with patient the option of exploratory laparotomy with possible segmental resection and possible ostomy before we started the endoscopic procedure. Will allow the sedation to wear off and discuss this further with the patient. Continue antibiotics for now. Keep n.p.o. with gastric decompression.
[2024-11-10 08:58] LABS: ALT 14 U/L (10-49); AST 16 U/L (14-35); Albumin 3.5 g/dL (3.8-4.9); Albumin/Globulin Ratio 1.59 Ratio (1.60-3.17); Alkaline Phosphatase 47 U/L (41-126); BUN/Creat Ratio 29.75 Ratio (12.00-20.00); Blood Urea Nitrogen 23.8 mg/dL (9.0-27.0); Calcium 8.9 mg/dL (8.7-10.3); Carbon Dioxide 26.1 mmol/L (21.6-31.8); Chloride 103 mmol/L (96-109); Globulin 2.2 g/dL (1.6-3.3); Glucose 89 mg/dL (70-110); Potassium 4.2 mmol/L (3.5-5.5); Sodium 139 mmol/L (135-145); Total Bilirubin 0.6 mg/dL (0.3-1.2); Total Protein 5.7 g/dL (6.2-8.2)
[2024-11-10] MEDS: PANTOPRAZOLE 40 MG/10 ML VIAL IV SCH (09:19)
[2024-11-10 09:22] LABS: Basophils # (A) 0.02 X 10*3/uL (0.00-0.10); Basophils % (A) 0.3 %; Eosinophils # (A) 0.05 X 10*3/uL (0.04-0.35); Eosinophils % (A) 0.6 %; HCT 42.9 % (39.6-50.0); HGB 14.1 g/dL (13.0-17.0); Lymphocytes # (A) 1.03 X 10*3/uL (0.90-5.00); Lymphocytes % (A) 12.9 %; MCH 29.1 pg (27.0-32.0); MCHC 32.9 g/dL (32.0-37.0); MCV 88.6 FL (80.0-97.0); Monocytes # (A) 1.19 X 10*3/uL (0.20-1.00); Monocytes % (A) 14.9 %; NRBC Per 100 WBC 0 X 10*3/uL (0.00-0.01); Neutrophils # (A) 5.69 X 10*3/uL (1.80-7.70); Platelet Count 315 X 10*3/uL (140-440); RBC 4.84 X 10*6/uL (4.40-5.60); RDW 12.5 % (11.5-14.5)
--- NOTE | 2024-11-10 09:33 | P.PN ---
Subjective Progress Note Date: 11/10/24 No new complaints. S/P sigmoidoscopy today which does show some narrowing of the sigmoid possibly from mass as suggested on CT scan. Reviewed procedure note and findings - pt likely needs ex lap with sigmoidectomy and ostomy. Further surgical plan pending discussion with patient. Gen: In NAD, non-toxic HEENT: normocephalic, atraumatic, hearing acuity is intant, mucous membranes moist CVS: perfusing all extremities well, no pitting edema, Respiratory: symmetric chest expansion, no accessory muscle use, GI: soft, NTTP, ND, : no suprapubic tenderness, no CVA tenderness MSK/Derm: no rashes, cyanosis Neuro: CN II-XII intact, no motor weakness, Psych: cooperative, euthymic mood, judgment and insight is intact Hospital Course: 64-year-old man with medical history of GERD, diverticulitis presented for evaluation of abdominal pain, nausea, vomiting. In the emergency room, patient was afebrile, 156/94, heart rate 112, 100% on room air. CBC shows polycythemia to 17.6, thrombocytosis to 451. Metabolic panel shows sodium of 136, chloride of 95, BUN of 28. Liver function test show total protein of 8.3. Lipase is 136. Abdominal CT shows possible mass present with superimposed colitis involving the sigmoid colon with upstream dilation of the small and large bowel suggesting some degree of obstruction. Case was discussed with the emergency room and decision was made to admit the patient for further evaluation. Surgery was consulted. Assessment/plan: Sigmoid colitis Colonic mass Partial large bowel obstruction -Admit as an inpatient -Antibiotics with ciprofloxacin, Flagyl -General Surgery consult, recs appreciated -Stool culture pending -IV fluids -NG tube, n.p.o. History of GERD -PPI daily Patient is full code Objective - Vital Signs Vital signs: Vital Signs Temp 98.5 F 11/10/24 06:43 Pulse 84 11/10/24 06:43 Resp 14 11/10/24 06:43 BP 123/75 11/10/24 06:43 Pulse Ox 98 11/10/24 06:43 FiO2 Intake & Output 11/09/24 11/10/24 11/10/24 18:59 06:59 18:59 Intake Total 700 Output Total 500 Balance -500 700 Weight 68.039 kg 68.039 kg Intake: IV 700 Output: Gastric Drainage 200 Urine 300 Other: Voiding Method Urinal - Labs CBC & Chem 7: 11/10/24 04:42 11/10/24 04:42 Labs: Abnormal Lab Results - Last 24 Hours (Table) 11/09/24 11/09/24 11/10/24 Range/Units 11:30 11:30 04:42 Hgb 17.6 H (13.0-17.5) gm/dL Plt Count 451 H (150-450) k/uL MPV 9.0 L (9.5-12.2) FL Neutrophils # (Manual) 8.08 H (1.3-7.7) k/uL Lymphocytes # (Manual) 0.47 L (1.0-4.8) k/uL Monocytes # 1.19 H (0.20-1.00) X 10*3/uL Sodium 136 L (137-145) mmol/L Chloride 95 L (98-107) mmol/L BUN 28 H (9-20) mg/dL BUN/Creatinine Ratio (12.00-20.00) Ratio Glucose 119 H (74-99) mg/dL Total Protein 8.3 H (6.3-8.2) g/dL Albumin (3.8-4.9) g/dL Albumin/Globulin Ratio (1.60-3.17) Ratio 11/10/24 Range/Units 04:42 Hgb (13.0-17.5) gm/dL Plt Count (150-450) k/uL MPV (9.5-12.2) FL Neutrophils # (Manual) (1.3-7.7) k/uL Lymphocytes # (Manual) (1.0-4.8) k/uL Monocytes # (0.20-1.00) X 10*3/uL Sodium (137-145) mmol/L Chloride (98-107) mmol/L BUN (9-20) mg/dL BUN/Creatinine Ratio 29.75 H (12.00-20.00) Ratio Glucose (74-99) mg/dL Total Protein 5.7 L (6.3-8.2) g/dL Albumin 3.5 L (3.8-4.9) g/dL Albumin/Globulin Ratio 1.59 L (1.60-3.17) Ratio
[2024-11-10] MEDS: KETOROLAC 15 MG/ML 1 ML VIAL IVP PRN (09:44)
--- NOTE | 2024-11-10 11:43 | P.PN ---
Progress Note - Text Progress Note Date: 11/10/24 Patient and I discussed his endoscopic findings after his sedation wore off. Also discussed the clinical scenario detail with his by phone. The films were actually shown to the patient. On the coronal imaging again there is an area that is certainly suspicious for neoplastic process causing this partial colonic obstruction. Endoscopic findings raise the possibility of diverticular stricture however regardless the patient's symptoms have been ongoing and have not improved with outpatient antibiotics. Patient is agreeable to proceeding with surgery. Will proceed with exploratory laparotomy with probable colonic resection, possible colostomy at this time. Risks of bleeding, infection, scarring, hernia, ureteral injury, ostomy related complications, possible need for further surgery, anesthesia related complications all discussed. He understands and wishes to proceed.
[2024-11-10] MEDS: IV FLUID CONTINUATION 1,000 ML IV ONE ×2 (13:08→16:00)
[2024-11-10] MEDS: MIDAZOLAM 2 MG/2 ML VIAL IV ONE (13:41)
[2024-11-10] MEDS: DEXAMETHASONE SOD PHOSPHATE 4 MG/ML 1 ML VIAL IVP STA (13:48)
[2024-11-10] MEDS ORDERED: NALOXONE 0.4 MG/ML 1 ML VIAL IV PRN (13:55)
--- NOTE | 2024-11-10 13:57 | P.ANPRN ---
Procedure Note - Anesthesia - Epidural/Spinal Epidural Continuous Time Out Performed: Yes Date of Procedure: 11/10/24 Procedure Start Time: 13:41 Procedure Stop Time: 13:48 Location of Patient: PreOp Indication: Acute Post-Operative Pain, Requested by Surgeon Sedation Type: Sedate with meaningful contact maintained Preparation: Sterile Dressing Position: Sitting Catheter: Indwelling Needle Guage: 18 Blood Aspirated: No Pain Paresthesia on Injection Noted: No Events: Uneventful and Well Tolerated (Xylocaine 1/2% plus epi 3 cc given as a test dose no adverse reaction noted)
[2024-11-10] MEDS: SODIUM CHLORIDE 0.9% 50 ML with ceFAZolin 2,000 MG IV ONE (15:52)
--- NOTE | 2024-11-10 17:44 | P.OP ---
Date of Procedure: 11/10/24 Procedure(s) Performed: PREOPERATIVE DIAGNOSIS: Colon obstruction POSTOPERATIVE DIAGNOSIS: Same PROCEDURE: Sigmoid colectomy with end colostomy SURGEON: Trey EBL: 50 mL ANESTHESIA: General COMPLICATIONS: None OPERATIVE PROCEDURE: Patient place in the operative table in the supine position. The patient was placed under general anesthesia. The abdomen was prepped and draped in usual sterile fashion. A vertical incision was made encompassing extending from the suprapubic region above the umbilicus. The fascia was divided as well. Upon entrance into the peritoneal cavity serous fluid was identified and evacuated. The Bookwalter retractor was utilized. The small bowel was significantly distended. This was able to be milked back to the stomach where it was evacuated. Approximately 4 to 500 cc of succus was removed. The patient's colon was visualized at its obstruction point near the transition between descending and sigmoid colon. It was very inflamed here and I suspect this was most likely chronic diverticulitis. The patient was very thin and the inflammatory changes involved the gonadal vessels and the course of the ureter. I was able to carefully dissect the colon away from the structures preserving the ureter. Once the bowel was mobilized medially the colon was divided proximal to the obstruction site using a green load 75 stapler. The mesentery was divided primarily with 0 silk ties. The bowel was divided distal to the obstruction site in the mid sigmoid colon using a blue load contour stapler. Specimen was passed off. Mobilization of the colon proximally took place by dividing the white line of Toldt. Again the ureter was identified and preserved. Once I had enough length on the colon the abdomen was copiously irrigated with 3 L of saline. Inspection of the visualized colon small bowel and liver appeared normal. A circular incision was made in the left midabdomen. Dissection through the subcutaneous fat and fascia took place using electrocautery. I bluntly entered the peritoneal cavity and this was further bluntly opened. The bowel was brought out through this defect in the left midabdomen. The midline fascia was then reapproximated using 2 separate double- stranded #1 PDS sutures. The subcutaneous tissues were irrigated. The subcutaneous tissues were closed using 3-0 Vicryl sutures. The skin was then closed using wei. The ostomy was then addressed. The staple line was then removed using electrocautery. The ostomy was then matured in a telida fashion using interrupted 3-0 Vicryl sutures. An ostomy appliance was then applied. Sterile dressings were then applied to the midline incision. DISPOSITION: Stable to recovery room
[2024-11-10] MEDS: HYDROmorphone 1 MG/ML 1 ML SYRINGE IVP PRN (18:25)
[2024-11-10] MEDS: ROPIVACAINE 250 MG, HYDROMORPHONE (PF) 5 MG in SODIUM CHLORIDE 0.9% 200 ML EPIDURAL PRN (18:35)
[2024-11-11] MEDS: HEPARIN SODIUM,PORCINE 5,000 UNIT/ML 1 ML VIAL SQ SCH
[2024-11-11] MEDS: ACETAMINOPHEN IV (For NPO) 1,000 MG in EMPTY BAG 1 BAG IVPB STA ×2 (04:36→20:57)
--- NOTE | 2024-11-11 07:32 | P.PN ---
Progress Note - Text Progress Note Date: 11/11/24 Postoperative day #1 status post explaretory lap , sigmoid colectomy ,epidural catheter placed for postoperative analgesia, patient doing well epidural site okay, patient currently on combination of epidural infusion solution of Ropivacaine 0.0625% and Dilaudid 20 g per mL the infusion rate at 10 ml per hour , patient had no motor deficit epidural site okay , vital signs stable ,VAS 4/10 , Assessment and plan= post operative day # 1 patient doing well ,pain well controlled , there is no anesthesia related complications
[2024-11-11 08:48] LABS: BUN/Creat Ratio 21.25 Ratio (12.00-20.00); Carbon Dioxide 24.7 mmol/L (21.6-31.8); Chloride 106 mmol/L (96-109); Glucose 85 mg/dL (70-110); Potassium 4.4 mmol/L (3.5-5.5); Sodium 140 mmol/L (135-145)
[2024-11-11 08:49] LABS: Calcium 8.1 mg/dL (8.7-10.3)
[2024-11-11 09:06] LABS: Basophils # (A) 0.01 X 10*3/uL (0.00-0.10); Basophils % (A) 0.1 %; Eosinophils # (A) 0.01 X 10*3/uL (0.04-0.35); Eosinophils % (A) 0.1 %; HCT 40.8 % (39.6-50.0); Lymphocytes # (A) 1.09 X 10*3/uL (0.90-5.00); Lymphocytes % (A) 13.1 %; MCH 29.3 pg (27.0-32.0); MCHC 31.9 g/dL (32.0-37.0); MCV 91.9 FL (80.0-97.0); Mean Platelet Volume 9.3 FL (9.5-12.2); Monocytes # (A) 0.89 X 10*3/uL (0.20-1.00); Monocytes % (A) 10.7 %; NRBC Per 100 WBC 0 X 10*3/uL (0.00-0.01); Neutrophils % (A) 75.5 %; Platelet Count 272 X 10*3/uL (140-440); RBC 4.44 X 10*6/uL (4.40-5.60); RDW 12.4 % (11.5-14.5); WBC 8.34 X 10*3/uL (4.50-10.00)
--- NOTE | 2024-11-11 12:55 | P.PN ---
Subjective Progress Note Date: 11/11/24 Patient has had flatus and stool passed through colostomy bag. On exam vital signs appear stable. Abdomen is soft. Incisions clean dry intact. Colostomy is functioning. Patient have a nasogastric tube removed today he will start on clear liquid diet. Objective - Vital Signs Vital signs: Vital Signs Temp 98.3 F 11/11/24 08:00 Pulse 82 11/11/24 08:00 Resp 17 11/11/24 08:00 BP 107/56 11/11/24 08:00 Pulse Ox 97 11/11/24 08:00 FiO2 Intake & Output 11/10/24 11/11/24 11/11/24 18:59 06:59 18:59 Intake Total 4050.117 9.8 Output Total 150 625 Balance 3900.117 -615.2 Intake: IV 4050 Intake, IV Titration 0.117 9.8 Amount Ropivacaine 250 mg 0.117 9.8 Hydromorphone (Pf) 5 mg In Sodium Chloride 0.9% 200 ml @ Per Protocol EPIDURAL .Q0M PRN Rx#: [id number] Output: Gastric Drainage 100 Urine 100 525 Estimated Blood Loss 50 Other: Voiding Method Urinal Indwelling Catheter Indwelling Catheter # Voids 1 - Labs CBC & Chem 7: 11/11/24 04:20 11/11/24 04:20 Labs: Abnormal Lab Results - Last 24 Hours (Table) 11/11/24 11/11/24 Range/Units 04:20 04:20 MCHC 31.9 L (32.0-37.0) g/dL MPV 9.3 L (9.5-12.2) FL Eosinophils # 0.01 L (0.04-0.35) X 10*3/uL BUN/Creatinine Ratio 21.25 H (12.00-20.00) Ratio Calcium 8.1 L (8.7-10.3) mg/dL Microbiology - Last 24 Hours (Table) 11/09/24 17:20 Blood Culture - Preliminary Blood
--- NOTE | 2024-11-11 14:16 | P.PN ---
Subjective Progress Note Date: 11/11/24 Hospital Course: Patient went for sigmoid colectomy with end colostomy on 11/10/2024. Tolerated procedure well. Epidural catheter placed for postoperative analgesia NG-tube removed on 11/01, started on CLD Pertinent Imaging: Subjective: When bedside, he was only complaining of postop abdominal pain and discomfort from NG tube Pertinent positives and negatives as discussed above, a complete review of systems was performed and all other systems are negative. Vitals Signs Reviewed. General: [nontoxic], [no distress], [appears at stated age] Derm: [warm], [dry] Head: [atraumatic], [normocephalic], [symmetric] Eyes: [EOMI], [no lid lag], [anicteric sclera] Mouth: [no lip lesion], [mucus membranes moist] Cardiovascular: [S1S2 reg], [no murmur] Lungs: [CTA bilateral], [no rhonchi, no rales] , [no accessory muscle use] Abdominal abdomen is soft, colostomy with liquid brown stool, bowel sounds present Ext: [no gross muscle atrophy], [no edema], [no contractures] Neuro: [ CN II-XI grossly intact], [no focal neuro deficits] Psych: [Alert], [oriented], [appropriate affect] Data Reviewed Today: Pertinent Labs: Hemoglobin and WBC stable, platelets normal, normal electrolytes, kidney function Assessment and Plan: [Active:] Colon obstruction status post sigmoid colectomy with end colostomy 11/10/2024 -General Surgery following -NG tube is out, started on CLD 11/11 -Pain management per surgical team -Follow-up on surgical pathology, per open old obstruction was likely caused by diverticulitis -Continue Cipro and Flagyl [Chronic:] History of GERD: PPI DVT ppx: SCD Anticipated discharge place: TBD Anticipated discharge time: TBD Objective - Vital Signs Vital signs: Vital Signs Temp 98.3 F 11/11/24 08:00 Pulse 82 11/11/24 08:00 Resp 17 11/11/24 08:00 BP 107/56 11/11/24 08:00 Pulse Ox 97 11/11/24 08:00 FiO2 Intake & Output 11/10/24 11/11/24 11/11/24 18:59 06:59 18:59 Intake Total 4050.117 9.8 Output Total 150 625 Balance 3900.117 -615.2 Intake: IV 4050 Intake, IV Titration 0.117 9.8 Amount Ropivacaine 250 mg 0.117 9.8 Hydromorphone (Pf) 5 mg In Sodium Chloride 0.9% 200 ml @ Per Protocol EPIDURAL .Q0M PRN Rx#: [id number] Output: Gastric Drainage 100 Urine 100 525 Estimated Blood Loss 50 Other: Voiding Method Urinal Indwelling Catheter Indwelling Catheter # Voids 1 - Labs CBC & Chem 7: 11/11/24 04:20 11/11/24 04:20 Labs: Abnormal Lab Results - Last 24 Hours (Table) 11/11/24 11/11/24 Range/Units 04:20 04:20 MCHC 31.9 L (32.0-37.0) g/dL MPV 9.3 L (9.5-12.2) FL Eosinophils # 0.01 L (0.04-0.35) X 10*3/uL BUN/Creatinine Ratio 21.25 H (12.00-20.00) Ratio Calcium 8.1 L (8.7-10.3) mg/dL Microbiology - Last 24 Hours (Table) 11/09/24 17:20 Blood Culture - Preliminary Blood
[2024-11-12 08:55] LABS: African American GFR (CKD) >90 (>60 ml/min/1.73 sqM); Anion Gap 3 mmol/L; Blood Urea Nitrogen 14 mg/dL (9-20); Calcium 8.3 mg/dL (8.4-10.2); Carbon Dioxide 30 mmol/L (22-30); Chloride 101 mmol/L (98-107); Glucose 83 mg/dL (74-99); Non-African American GFR(CKD) >90 (>60 ml/min/1.73 sqM); Potassium 4.3 mmol/L (3.5-5.1); Sodium 134 mmol/L (137-145)
[2024-11-12 09:26] LABS: Basophils % (A) 0 %; Eosinophils # (A) 0.2 k/uL (0-0.7); Eosinophils % (A) 2 %; HCT 42.1 % (39.0-53.0); Lymphocytes # (A) 0.9 k/uL (1.0-4.8); Lymphocytes % (A) 12 %; MCH 29.4 pg (25.0-35.0); MCV 91.8 fL (80.0-100.0); Mean Platelet Volume 6.9; Monocytes # (A) 0.5 k/uL (0-1.0); Monocytes % (A) 6 %; Neutrophils # (A) 5.7 k/uL (1.3-7.7); Neutrophils % (A) 77 %; Platelet Count 277 k/uL (150-450); RBC 4.58 m/uL (4.30-5.90); WBC 7.5 k/uL (3.8-10.6)
[2024-11-12 09:30] LABS: HGB 13.5 gm/dL (13.0-17.5)
--- NOTE | 2024-11-12 09:51 | P.PN ---
Progress Note - Text Progress Note Date: 11/12/24 Status post Sigmoid colectomy with end colostomy- epidural Day 3 Patient seen and examined. Doing well with complaint of pain and some nausea. VAS 4-5 out of 10. Resting comfortably on the bed. He wants to walk whenever after the epidural catheter removed. With activities his pain levels are 6-7 out of 10 in severity. Per patient his pain levels are manageable. He denied any lower extremity weakness, numbness tingling sensation. Objective: Vital signs reviewed. Afebrile Lungs: Good chest excursion Abdomen: Appears nondistended Other: Epidural Site Intact without induration. Dressing intact Neuro: No apparent motor block. Sensory within normal limits. Platelet count: On 11/12/2024: 277K/UL Heparin 5000 units subcu every 8 hours Assessment: Status post Sigmoid colectomy with end colostomy postop day #2 Plan: Continue epidural catheter at the rate of 10 mL/h. If needed increase the epidural catheter solution up to 12 mL/h. Discussed with patient, and RN.
--- NOTE | 2024-11-12 11:07 | P.PN ---
Subjective Progress Note Date: 11/12/24 Patient feels better. He has minimal complaints of pain. He is tolerating clear liquids. His colostomy is functioning. On exam vital signs appear stable. Abdomen is soft. We will advance diet as tolerated. Objective - Vital Signs Vital signs: Vital Signs Temp 98.0 F 11/12/24 07:35 Pulse 93 11/12/24 07:35 Resp 16 11/12/24 07:35 BP 118/62 11/12/24 07:35 Pulse Ox 95 11/12/24 07:35 FiO2 Intake & Output 11/11/24 11/12/24 11/12/24 18:59 06:59 18:59 Intake Total 1389 1300 240 Output Total 900 400 Balance 489 1300 -160 Intake: IV 1300 ACETAMINOPHEN IV (For NPO 400 ) 1,000 mg In Empty Bag 1 bag @ 400 mls/hr IVPB ONCE STA Rx#:[id number] Ciprofloxacin/Dextrose 200 Pmx 400 mg In Dextrose/ Water 1 200ml.bag @ 200 mls/hr IVPB Q12H [facility] Rx#: [id number] Sodium Chloride 0.9% 1, 600 000 ml @ 75 mls/hr IV . [id number] [facility] Rx#:[id number] metroNIDAZOLE-NS PMX 500 100 mg In Saline 1 100ml.bag @ 100 mls/hr IVPB Q8HR [facility] Rx#:[id number] Intake, IV Titration 1271 Amount Ciprofloxacin/Dextrose 200 Pmx 400 mg In Dextrose/ Water 1 200ml.bag @ 200 mls/hr IVPB Q12H [facility] Rx#: [id number] Ropivacaine 250 mg 196 Hydromorphone (Pf) 5 mg In Sodium Chloride 0.9% 200 ml @ Per Protocol EPIDURAL .Q0M PRN Rx#: [id number] Sodium Chloride 0.9% 1, 675 000 ml @ 75 mls/hr IV . [id number] [facility] Rx#:[id number] metroNIDAZOLE-NS PMX 500 200 mg In Saline 1 100ml.bag @ 100 mls/hr IVPB Q8HR [facility] Rx#:[id number] Oral 118 240 Output: Urine 500 Stool 400 400 Other: Voiding Method Indwelling Catheter Indwelling Catheter Indwelling Catheter - Labs CBC & Chem 7: 11/12/24 08:40 11/12/24 08:15 Labs: Abnormal Lab Results - Last 24 Hours (Table) 11/12/24 11/12/24 Range/Units 08:15 08:40 Lymphocytes # 0.9 L (1.0-4.8) k/uL Sodium 134 L (137-145) mmol/L Calcium 8.3 L (8.4-10.2) mg/dL Microbiology - Last 24 Hours (Table) 11/09/24 17:20 Blood Culture - Preliminary Blood
--- NOTE | 2024-11-12 14:32 | P.PN ---
Subjective Progress Note Date: 11/12/24 Hospital Course: 64-year-old man with medical history of GERD, diverticulitis presented for michelle luation of abdominal pain, nausea, vomiting. Patient says that approximately 2 weeks ago he started develop some left lower quadrant abdominal pain that felt similar to the previous time that he had diverticulitis. At that time he had associated symptoms of nausea, vomiting. He was prescribed some antibiotics from his primary care physician and said he felt a little bit better after taking these, is not sure which antibiotics these were. However, after discontinuation, patient started to feel ill again. He went to the emergency room on 11/06 for similar complaints and was discharged with famotidine and instructed follow-up with his primary care physician as well as GI. Unfortunately his symptoms progressed in the last 72 hours prompting patient to return to the emergency room. He reports nausea, vomiting, sweats, weight loss, poor appetite. He did have a bowel movement but it was very small in caliber. He feels bloated. In the emergency room, patient was afebrile, 156/94, heart rate 112, 100% on room air. CBC shows polycythemia to 17.6, thrombocytosis to 451. Metabolic pa rommel shows sodium of 136, chloride of 95, BUN of 28. Liver function test show total protein of 8.3. Lipase is 136. Abdominal CT shows possible mass present with superimposed colitis involving the sigmoid colon with upstream dilation of the small and large bowel suggesting some degree of obstruction. Case was discussed with the emergency room and decision was made to admit the patient for further evaluation. Surgery was consulted. Patient went for sigmoid colectomy with end colostomy on 11/10/2024. Tolerated procedure well. Epidural catheter placed for postoperative analgesia NG-tube removed on 11/11 started on CLD. Epidural catheter removed 11/12/2024 Pertinent Imaging: [] Subjective: [] Pertinent positives and negatives as discussed above, a complete review of systems was performed and all other systems are negative. Vitals Signs Reviewed. General: [nontoxic], [no distress], [appears at stated age] General: [nontoxic], [no distress], [appears at stated age] Derm: [warm], [dry] Head: [atraumatic], [normocephalic], [symmetric] Eyes: [EOMI], [no lid lag], [anicteric sclera] Mouth: [no lip lesion], [mucus membranes moist] Cardiovascular: [S1S2 reg], [no murmur] Lungs: [CTA bilateral], [no rhonchi, no rales] , [no accessory muscle use] Abdominal abdomen is soft, colostomy with liquid brown stool, bowel sounds present Ext: [no gross muscle atrophy], [no edema], [no contractures] Neuro: [ CN II-XI grossly intact], [no focal neuro deficits] Psych: [Alert], [oriented], [appropriate affect] Data Reviewed Today: Pertinent Labs: [] CBC with normal WBC, leukocytes and hemoglobin, mild hyponatremia on CMP, normal potassium, normal creatinine Assessment and Plan: [Colon obstruction status post sigmoid colectomy with end colostomy 11/10/2024 -General Surgery following -NG tube is out, started on regular diet 11/12 -Pain management per surgical team -Follow-up on surgical pathology, per op note struction was likely caused by diverticulitis -Continue Cipro and Flagyl [Chronic:] History of GERD: PPI DVT ppx: SCD Anticipated discharge place: [facility] Anticipated discharge time: TBD Objective - Vital Signs Vital signs: Vital Signs Temp 98.5 F 11/12/24 12:00 Pulse 89 11/12/24 12:00 Resp 16 11/12/24 12:00 BP 121/74 11/12/24 12:00 Pulse Ox 96 11/12/24 12:00 FiO2 Intake & Output 11/11/24 11/12/24 11/12/24 18:59 06:59 18:59 Intake Total 1389 1300 358 Output Total 900 400 Balance 489 1300 -42 Intake: IV 1300 ACETAMINOPHEN IV (For NPO 400 ) 1,000 mg In Empty Bag 1 bag @ 400 mls/hr IVPB ONCE STA Rx#:[id number] Ciprofloxacin/Dextrose 200 Pmx 400 mg In Dextrose/ Water 1 200ml.bag @ 200 mls/hr IVPB Q12H [facility] Rx#: [id number] Sodium Chloride 0.9% 1, 600 000 ml @ 75 mls/hr IV . [id number] [facility] Rx#:[id number] metroNIDAZOLE-NS PMX 500 100 mg In Saline 1 100ml.bag @ 100 mls/hr IVPB Q8HR [facility] Rx#:[id number] Intake, IV Titration 1271 Amount Ciprofloxacin/Dextrose 200 Pmx 400 mg In Dextrose/ Water 1 200ml.bag @ 200 mls/hr IVPB Q12H [facility] [place] Rx#: [id number] Ropivacaine 250 mg 196 Hydromorphone (Pf) 5 mg In Sodium Chloride 0.9% 200 ml @ Per Protocol EPIDURAL .Q0M PRN Rx#: [id number] Sodium Chloride 0.9% 1, 675 000 ml @ 75 mls/hr IV . [id number] [facility] Rx#:[id number] metroNIDAZOLE-NS PMX 500 200 mg In Saline 1 100ml.bag @ 100 mls/hr IVPB Q8HR [facility] Rx#:[id number] Oral 118 358 Output: Urine 500 Stool 400 400 Other: Voiding Method Indwelling Catheter Indwelling Catheter Indwelling Catheter - Labs CBC & Chem 7: 11/12/24 08:40 11/12/24 08:15 Labs: Abnormal Lab Results - Last 24 Hours (Table) 11/12/24 11/12/24 Range/Units 08:15 08:40 Lymphocytes # 0.9 L (1.0-4.8) k/uL Sodium 134 L (137-145) mmol/L Calcium 8.3 L (8.4-10.2) mg/dL Microbiology - Last 24 Hours (Table) 11/09/24 17:20 Blood Culture - Preliminary Blood
[2024-11-13] MEDS: ARTIFICIAL TEARS-HYPROMELLOSE DROPS 15 ML BTL BOTH EYES PRN (00:11)
--- NOTE | 2024-11-13 08:32 | P.PN ---
Progress Note - Text Progress Note Date: 11/13/24 Patient was seen and evaluated at bedside. Epidural catheter was removed yesterday. He is able to stand and move without difficulty. No weakness, numbness in his lower extremities. He denied any pain in his lumbar area, no tenderness. Hemodynamically stable. Primary team is managing his postoperative pain. Please consult anesthesia if needed.
[2024-11-13] MEDS: HYDROcodone/APAP 5-325MG 1 EACH TAB PO PRN (10:29)
[2024-11-13 10:32] LABS: BUN/Creat Ratio 11.75 Ratio (12.00-20.00); Blood Urea Nitrogen 9.4 mg/dL (9.0-27.0); Calcium 8.1 mg/dL (8.7-10.3); Carbon Dioxide 24.7 mmol/L (21.6-31.8); Chloride 100 mmol/L (96-109); Glucose 129 mg/dL (70-110); Potassium 4.2 mmol/L (3.5-5.5); Sodium 135 mmol/L (135-145)
--- NOTE | 2024-11-13 12:41 | P.PN ---
Subjective Progress Note Date: 11/13/24 SURGICAL PROGRESS NOTE CHIEF COMPLAINT: Colon obstruction HISTORY OF PRESENT ILLNESS: Patient is postop day #2 status post sigmoid colectomy with end colostomy for colonic obstruction. Patient's ostomy is functioning. Pain is controlled. Epidural and Dawson catheter were discontinued yesterday. Patient reports he is urinating. He does have some pain with movement. Denies any nausea or vomiting. Reports eating a small amount. Afebrile. WBC 7.5 PHYSICAL EXAM: VITAL SIGNS: Reviewed. GENERAL: Well-developed in no acute distress. ABDOMEN: Soft. Nondistended. Tenderness at incision site. Surgical dressing clean dry and intact. Ostomy on the left with stool present. NEUROLOGIC: Alert and oriented. Cranial nerves II through XII grossly intact. ASSESSMENT: 1. Colonic obstruction status post sigmoid colectomy with end colostomy PLAN: -Add Custer for oral pain medication -Consult PT to help ambulate patient -Ostomy teaching today -Incentive spirometer ordered -Encourage patient increase activity level -GI prophylaxis Protonix and DVT prophylaxis subcu heparin -Anticipate discharge from surgical standpoint in the next 1 to 2 days -Add Ensure for protein supplement Physician Director Of Content And Programming note has been reviewed by physician. Signing provider agrees with the documented findings, assessment, and plan of care. Objective - Vital Signs Vital signs: Vital Signs Temp 98.8 F 11/13/24 07:00 Pulse 83 11/13/24 08:00 Resp 17 11/13/24 08:00 BP 151/81 11/13/24 07:00 Pulse Ox 96 11/13/24 07:00 FiO2 Intake & Output 11/12/24 11/13/24 11/13/24 18:59 06:59 18:59 Intake Total 1678 900 Output Total 1000 250 400 Balance 678 650 -400 Intake: IV 900 Ciprofloxacin/Dextrose 200 Pmx 400 mg In Dextrose/ Water 1 200ml.bag @ 200 mls/hr IVPB Q12H [facility] Rx#: [id number] Sodium Chloride 0.9% 1, 600 000 ml @ 75 mls/hr IV . [id number] [facility] Rx#:[id number] metroNIDAZOLE-NS PMX 500 100 mg In Saline 1 100ml.bag @ 100 mls/hr IVPB Q8HR [facility] Rx#:[id number] Oral 1678 Output: Urine 600 250 Uretheral (Dawson) 600 Stool 400 400 Other: Voiding Method Indwelling Catheter Urinal Urinal # Voids 1 - Labs CBC & Chem 7: 11/12/24 08:40 11/13/24 05:43 Labs: Abnormal Lab Results - Last 24 Hours (Table) 11/13/24 Range/Units 05:43 BUN/Creatinine Ratio 11.75 L (12.00-20.00) Ratio Glucose 129 H (70-110) mg/dL Calcium 8.1 L (8.7-10.3) mg/dL Microbiology - Last 24 Hours (Table) 11/09/24 17:20 Blood Culture - Preliminary Blood
[2024-11-13 14:05] VITALS: BMI 21.5
--- NOTE | 2024-11-13 14:36 | P.PN ---
Subjective Progress Note Date: 11/13/24 Hospital Course: 64-year-old man with medical history of GERD, diverticulitis presented for michelle luation of abdominal pain, nausea, vomiting. Patient says that approximately 2 weeks ago he started develop some left lower quadrant abdominal pain that felt similar to the previous time that he had diverticulitis. At that time he had associated symptoms of nausea, vomiting. He was prescribed some antibiotics from his primary care physician and said he felt a little bit better after taking these, is not sure which antibiotics these were. However, after discontinuation, patient started to feel ill again. He went to the emergency room on 11/06 for similar complaints and was discharged with famotidine and instructed follow-up with his primary care physician as well as GI. Unfortunately his symptoms progressed in the last 72 hours prompting patient to return to the emergency room. He reports nausea, vomiting, sweats, weight loss, poor appetite. He did have a bowel movement but it was very small in caliber. He feels bloated. In the emergency room, patient was afebrile, 156/94, heart rate 112, 100% on room air. CBC shows polycythemia to 17.6, thrombocytosis to 451. Metabolic pa rommel shows sodium of 136, chloride of 95, BUN of 28. Liver function test show total protein of 8.3. Lipase is 136. Abdominal CT shows possible mass present with superimposed colitis involving the sigmoid colon with upstream dilation of the small and large bowel suggesting some degree of obstruction. Case was discussed with the emergency room and decision was made to admit the patient for further evaluation. Surgery was consulted. Patient went for sigmoid colectomy with end colostomy on 11/10/2024. Tolerated procedure well. Epidural catheter placed for postoperative analgesia NG-tube removed on 11/11 started on CLD. Epidural catheter removed 11/12/2024. On regular diet 11/13, anticipate discharge on 11/14 or 11/15, ostomy education provided Subjective: Patient was seen and examined at bedside, he states that his pain ranges between 5-10 out of 10, acute now is able to sit on the edge of the bed, regular diet is tolerated well, Dawson catheter was removed, patient is urinating urinating without difficulty Pertinent positives and negatives as discussed above, a complete review of syst ems was performed and all other systems are negative. Vitals Signs Reviewed. General: [nontoxic], [no distress], [appears at stated age] Derm: [warm], [dry] Head: [atraumatic], [normocephalic], [symmetric] Eyes: [EOMI], [no lid lag], [anicteric sclera] Mouth: [no lip lesion], [mucus membranes moist] Cardiovascular: [S1S2 reg], [no murmur] Lungs: [CTA bilateral], [no rhonchi, no rales] , [no accessory muscle use] Abdominal abdomen is soft, colostomy with liquid brown stool, bowel sounds prese nt Ext: [no gross muscle atrophy], [no edema], [no contractures] Neuro: [ CN II-XI grossly intact], [no focal neuro deficits] Psych: [Alert], [oriented], [appropriate affect] Data Reviewed Today: Pertinent Labs: Electrolytes WNL, creatinine WNL Assessment and Plan: Colon obstruction status post sigmoid colectomy with end colostomy 11/10/2024 -General Surgery following -NG tube is out, started on regular diet 11/12 -Pain management per surgical team, epidural catheter removed 11/12 -Follow-up on surgical pathology, per op note struction was likely caused by diverticulitis -Continue Cipro and Flagyl [Chronic:] History of GERD: PPI DVT ppx: SCD Anticipated discharge place: Home Anticipated discharge time: 24 to 48 hours Objective - Vital Signs Vital signs: Vital Signs Temp 99.1 F 11/13/24 12:55 Pulse 82 11/13/24 12:55 Resp 18 11/13/24 12:55 BP 136/86 11/13/24 12:55 Pulse Ox 96 11/13/24 12:55 FiO2 Intake & Output 11/12/24 11/13/24 11/13/24 18:59 06:59 18:59 Intake Total 1678 900 Output Total 1000 250 400 Balance 678 650 -400 Weight 68.039 kg Intake: IV 900 Ciprofloxacin/Dextrose 200 Pmx 400 mg In Dextrose/ Water 1 200ml.bag @ 200 mls/hr IVPB Q12H [facility] Rx#: [id number] Sodium Chloride 0.9% 1, 600 000 ml @ 75 mls/hr IV . [id number] [facility] Rx#:[id number] metroNIDAZOLE-NS PMX 500 100 mg In Saline 1 100ml.bag @ 100 mls/hr IVPB Q8HR [facility] Rx#:[id number] Oral 1678 Output: Urine 600 250 Uretheral (Dawson) 600 Stool 400 400 Other: Voiding Method Indwelling Catheter Urinal Urinal # Voids 1 - Labs CBC & Chem 7: 11/12/24 08:40 11/13/24 05:43 Labs: Abnormal Lab Results - Last 24 Hours (Table) 11/13/24 Range/Units 05:43 BUN/Creatinine Ratio 11.75 L (12.00-20.00) Ratio Glucose 129 H (70-110) mg/dL Calcium 8.1 L (8.7-10.3) mg/dL Microbiology - Last 24 Hours (Table) 11/09/24 17:20 Blood Culture - Preliminary Blood
[2024-11-14] MEDS ORDERED: ACETAMINOPHEN TAB 325 MG TAB PO PRN (10:58)
--- NOTE | 2024-11-14 10:59 | P.PN ---
Subjective Progress Note Date: 11/14/24 Principal diagnosis: Hospital Course: 64-year-old man with medical history of GERD, diverticulitis presented for evaluation of abdominal pain, nausea, vomiting. Patient says that approximately 2 weeks ago he started develop some left lower quadrant abdominal pain that felt similar to the previous time that he had diverticulitis. At that time he had associated symptoms of nausea, vomiting. He was prescribed some antibiotics from his primary care physician and said he felt a little bit better after taking these, is not sure which antibiotics these were. However, after disco ntinuation, patient started to feel ill again. He went to the emergency room on 11/06 for similar complaints and was discharged with famotidine and instructed follow-up with his primary care physician as well as GI. Unfortunately his symptoms progressed in the last 72 hours prompting patient to return to the emergency room. He reports nausea, vomiting, sweats, weight loss, poor appetite. He did have a bowel movement but it was very small in caliber. He feels bloated. In the emergency room, patient was afebrile, 156/94, heart rate 112, 100% on room air. CBC shows polycythemia to 17.6, thrombocytosis to 451. Metabolic panel shows sodium of 136, chloride of 95, BUN of 28. Liver function test show total protein of 8.3. Lipase is 136. Abdominal CT shows possible mass present with superimposed colitis involving the sigmoid colon with upstream dilation of the small and large bowel suggesting some degree of obstruction. Case was discussed with the emergency room and decision was made to admit the patient for further evaluation. Surgery was consulted. Patient went for sigmoid colectomy with end colostomy on 11/10/2024. Tolerated procedure well. Epidural catheter placed for postoperative analgesia NG-tube removed on 11/11 started on CLD. Epidural catheter removed 11/12/2024. On regular diet Patient seen and examined. He reports he feels more comfortable with ostomy changes. Still reports he does have abdominal pain. Pathology report reviewed and discussed with patient which reveals benign colonic mucosa with diverticulitis inflammatory polyp. Objective - Vital Signs Vital signs: Vital Signs Temp 98.1 F 11/14/24 07:24 Pulse 83 11/14/24 07:24 Resp 16 11/14/24 01:02 BP 140/90 11/14/24 07:24 Pulse Ox 96 11/14/24 07:24 FiO2 Intake & Output 11/13/24 11/14/24 11/14/24 18:59 06:59 18:59 Intake Total 840 Output Total 1000 600 Balance -160 -600 Weight 68.039 kg Intake: Oral 840 Output: Urine 600 500 Stool 400 100 Other: Voiding Method Urinal Urinal - Exam General: [nontoxic], [no distress], [appears at stated age] Derm: [warm], [dry] Head: [atraumatic], [normocephalic], [symmetric] Eyes: [EOMI], [no lid lag], [anicteric sclera] Mouth: [no lip lesion], [mucus membranes moist] Cardiovascular: [S1S2 reg], [no murmur] Lungs: [CTA bilateral], [no rhonchi, no rales] , [no accessory muscle use] Abdominal abdomen is soft, colostomy with formed brown stool, bowel sounds present. Vertical surgical dressing Ext: [no gross muscle atrophy], [no edema], [no contractures] Neuro: [ CN II-XI grossly intact], [no focal neuro deficits] Psych: [Alert], [oriented], [appropriate affect] - Labs CBC & Chem 7: 11/12/24 08:40 11/13/24 05:43 Assessment and Plan Assessment: Colon obstruction status post sigmoid colectomy with end colostomy 11/10/2024 -Continue regular diet -Pain control with as needed Seltzer, as needed IV morphine and IV hydromorphone Discontinue ciprofloxacin Flagyl -Surgical pathology revealing benign colonic mucosa with diverticulitis inflammatory polyp with 2 benign mesenteric lymph nodes -Would anticipate discharge home in 24 to 48 hours once pain is better controlled and the patient is able to better manage his ostomy bag changes add lovenox 40 mg daily for vt ppx Time with Patient: Greater than 30
[2024-11-14] MEDS: KETOROLAC 15 MG/ML 1 ML VIAL IVP SCH (11:23)
--- NOTE | 2024-11-14 12:30 | P.PN ---
Subjective Progress Note Date: 11/14/24 SURGICAL PROGRESS NOTE CHIEF COMPLAINT: Colon obstruction HISTORY OF PRESENT ILLNESS: Patient is postop day #3 status post sigmoid colectomy with end colostomy for colonic obstruction. Patient's ostomy is functioning. He underwent his ostomy teaching. He reports an upset stomach after taking the Eden. But he had taken the Eden on an empty stomach. Patient reports picking at his meals. He denies any vomiting. He has ambulated. Denies any difficulty urinating. He does complain of abdominal pain and does not feel ready for discharge. Patient reports the pain is not getting worse. Afebrile. Dr. Cummins is covering for Dr. Yang PHYSICAL EXAM: VITAL SIGNS: Reviewed. GENERAL: Well-developed in no acute distress. ABDOMEN: Soft. Nondistended. Tenderness at incision site. Surgical dressing clean dry and intact. Ostomy on the left with stool present. NEUROLOGIC: Alert and oriented. Cranial nerves II through XII grossly intact. ASSESSMENT: 1. Colonic obstruction status post sigmoid colectomy with end colostomy PLAN: -Toradol added for pain control -Educated patient to take the Eden with food -Encourage patient to increase activity level -Encourage patient to use incentive spirometer -Continue Ensure for protein supplement -GI prophylaxis Protonix and DVT prophylaxis subcu heparin Physician Loom Technician note has been reviewed by physician. Signing provider agrees with the documented findings, assessment, and plan of care. Objective - Vital Signs Vital signs: Vital Signs Temp 98.1 F 11/14/24 07:24 Pulse 83 11/14/24 07:24 Resp 16 11/14/24 01:02 BP 140/90 11/14/24 07:24 Pulse Ox 96 11/14/24 07:24 FiO2 Intake & Output 11/13/24 11/14/24 11/14/24 18:59 06:59 18:59 Intake Total 840 236 Output Total 1000 600 Balance -160 -600 236 Weight 68.039 kg Intake: Oral 840 236 Output: Urine 600 500 Stool 400 100 Other: Voiding Method Urinal Urinal Urinal - Labs CBC & Chem 7: 11/12/24 08:40 11/13/24 05:43
[2024-11-14] MEDS: ENOXAPARIN 40 MG/0.4 ML SYRINGE SQ SCH (20:45)
[2024-11-15 09:48] LABS: Basophils # (A) 0.02 X 10*3/uL (0.00-0.10); Basophils % (A) 0.3 %; Eosinophils # (A) 0.16 X 10*3/uL (0.04-0.35); Eosinophils % (A) 2.3 %; HCT 42.8 % (39.6-50.0); HGB 14.3 g/dL (13.0-17.0); Lymphocytes # (A) 1.32 X 10*3/uL (0.90-5.00); Lymphocytes % (A) 19.1 %; MCH 29.8 pg (27.0-32.0); MCHC 33.4 g/dL (32.0-37.0); MCV 89.2 FL (80.0-97.0); Mean Platelet Volume 9.3 FL (9.5-12.2); Monocytes # (A) 0.81 X 10*3/uL (0.20-1.00); Monocytes % (A) 11.7 %; NRBC Per 100 WBC 0 X 10*3/uL (0.00-0.01); Neutrophils # (A) 4.55 X 10*3/uL (1.80-7.70); Platelet Count 308 X 10*3/uL (140-440); RDW 12.7 % (11.5-14.5)
[2024-11-15 10:23] LABS: Blood Urea Nitrogen 10.8 mg/dL (9.0-27.0); Glucose 100 mg/dL (70-110)
[2024-11-15 10:24] LABS: ALT 105 U/L (10-49); AST 145 U/L (14-35); Albumin 2.9 g/dL (3.8-4.9); Albumin/Globulin Ratio 1.53 Ratio (1.60-3.17); Alkaline Phosphatase 42 U/L (41-126); Calcium 8.6 mg/dL (8.7-10.3); Carbon Dioxide 25.8 mmol/L (21.6-31.8); Chloride 102 mmol/L (96-109); Globulin 1.9 g/dL (1.6-3.3); Potassium 4.1 mmol/L (3.5-5.5); Sodium 138 mmol/L (135-145); Total Bilirubin 0.3 mg/dL (0.3-1.2); Total Protein 4.8 g/dL (6.2-8.2)
--- NOTE | 2024-11-15 10:47 | P.PN ---
Subjective Progress Note Date: 11/15/24 Principal diagnosis: Hospital Course: 64-year-old man with medical history of GERD, diverticulitis presented for evaluation of abdominal pain, nausea, vomiting. Patient says that approximately 2 weeks ago he started develop some left lower quadrant abdominal pain that felt similar to the previous time that he had diverticulitis. At that time he had associated symptoms of nausea, vomiting. He was prescribed some antibiotics from his primary care physician and said he felt a little bit better after taking these, is not sure which antibiotics these were. However, after disco ntinuation, patient started to feel ill again. He went to the emergency room on 11/06 for similar complaints and was discharged with famotidine and instructed follow-up with his primary care physician as well as GI. Unfortunately his symptoms progressed in the last 72 hours prompting patient to return to the emergency room. He reports nausea, vomiting, sweats, weight loss, poor appetite. He did have a bowel movement but it was very small in caliber. He feels bloated. In the emergency room, patient was afebrile, 156/94, heart rate 112, 100% on room air. CBC shows polycythemia to 17.6, thrombocytosis to 451. Metabolic panel shows sodium of 136, chloride of 95, BUN of 28. Liver function test show total protein of 8.3. Lipase is 136. Abdominal CT shows possible mass present with superimposed colitis involving the sigmoid colon with upstream dilation of the small and large bowel suggesting some degree of obstruction. Case was discussed with the emergency room and decision was made to admit the patient for further evaluation. Surgery was consulted. Patient went for sigmoid colectomy with end colostomy on 11/10/2024. Tolerated procedure well. Epidural catheter placed for postoperative analgesia NG-tube removed on 11/11 started on CLD. Epidural catheter removed 11/12/2024. On regular diet Patient seen and examined. Reports that he feels he is more comfortable with the ostomy changes. Reports abdominal pain is minimal. He reports that when he has Garnett he lives in his tongue and it dissolves and it makes him feel nauseous. Objective - Vital Signs Vital signs: Vital Signs Temp 98.2 F 11/15/24 07:57 Pulse 83 11/15/24 07:57 Resp 14 11/15/24 07:57 BP 145/88 11/15/24 07:57 Pulse Ox 98 11/15/24 07:57 FiO2 Intake & Output 11/14/24 11/15/24 11/15/24 18:59 06:59 18:59 Intake Total 236 90 Output Total 250 Balance -14 90 Intake: Oral 236 90 Output: Stool 250 Other: Voiding Method Urinal Urinal Toilet Urinal # Voids 4 2 - Exam General: [nontoxic], [no distress], [appears at stated age] Derm: [warm], [dry] Head: [atraumatic], [normocephalic], [symmetric] Eyes: [EOMI], [no lid lag], [anicteric sclera] Mouth: [no lip lesion], [mucus membranes moist] Cardiovascular: [S1S2 reg], [no murmur] Lungs: [CTA bilateral], [no rhonchi, no rales] , [no accessory muscle use] Abdominal abdomen is soft, colostomy with liquid brown stool, bowel sounds present. Vertical surgical dressing Ext: [no gross muscle atrophy], [no edema], [no contractures] Neuro: [ CN II-XI grossly intact], [no focal neuro deficits] Psych: [Alert], [oriented], [appropriate affect] - Labs CBC & Chem 7: 11/15/24 03:22 11/15/24 03:22 Labs: Abnormal Lab Results - Last 24 Hours (Table) 11/15/24 11/15/24 Range/Units 03:22 03:22 MPV 9.3 L (9.5-12.2) FL Calcium 8.6 L (8.7-10.3) mg/dL AST 145 H (14-35) U/L ALT 105 H (10-49) U/L Total Protein 4.8 L (6.2-8.2) g/dL Albumin 2.9 L (3.8-4.9) g/dL Albumin/Globulin Ratio 1.53 L (1.60-3.17) Ratio Microbiology - Last 24 Hours (Table) 11/09/24 17:20 Blood Culture - Final Blood Assessment and Plan Assessment: Colon obstruction status post sigmoid colectomy with end colostomy 11/10/2024 -Continue regular diet -Pain control with as needed Garnett, and IV ketorolac, discontinue IV morphine and IV hydromorphone -Surgical pathology revealing benign colonic mucosa with diverticulitis inflammatory polyp with 2 benign mesenteric lymph nodes -Dissipate discharge home tomorrow lovenox 40 mg daily for DVT prophylaxis
[2024-11-15] MEDS: ACETAMINOPHEN TAB 500 MG TAB PO SCH (13:10)
--- NOTE | 2024-11-16 00:03 | P.PN ---
Progress Note - Text Progress Note Date: 11/15/24 CHIEF COMPLAINT: Colon obstruction HISTORY OF PRESENT ILLNESS: Patient is postop day #4 status post sigmoid colectomy with end colostomy for colonic obstruction. Patient's ostomy is functioning. He underwent his ostomy teaching. He is tolerating diet. Pain is controlled. PHYSICAL EXAM: VITAL SIGNS: Reviewed. GENERAL: Well-developed in no acute distress. ABDOMEN: Soft. Nondistended. Tenderness at incision site. Surgical dressing clean dry and intact. Ostomy on the left with stool present. NEUROLOGIC: Alert and oriented. Cranial nerves II through XII grossly intact. ASSESSMENT: 1. Colonic obstruction status post sigmoid colectomy with end colostomy PLAN: -Regular Diet -Pain Control -Encourage patient to increase activity level -Encourage patient to use incentive spirometer -Continue Ensure for protein supplement -GI prophylaxis Protonix and DVT prophylaxis subcu heparin Abel Cummins DO [facility] [phone]
--- NOTE | 2024-11-16 11:25 | P.PN ---
Subjective Progress Note Date: 11/16/24 Principal diagnosis: Hospital Course: 64-year-old man with medical history of GERD, diverticulitis presented for evaluation of abdominal pain, nausea, vomiting. Patient says that approximately 2 weeks ago he started develop some left lower quadrant abdominal pain that felt similar to the previous time that he had diverticulitis. At that time he had associated symptoms of nausea, vomiting. He was prescribed some antibiotics from his primary care physician and said he felt a little bit better after taking these, is not sure which antibiotics these were. However, after disco ntinuation, patient started to feel ill again. He went to the emergency room on 11/06 for similar complaints and was discharged with famotidine and instructed follow-up with his primary care physician as well as GI. Unfortunately his symptoms progressed in the last 72 hours prompting patient to return to the emergency room. He reports nausea, vomiting, sweats, weight loss, poor appetite. He did have a bowel movement but it was very small in caliber. He feels bloated. In the emergency room, patient was afebrile, 156/94, heart rate 112, 100% on room air. CBC shows polycythemia to 17.6, thrombocytosis to 451. Metabolic panel shows sodium of 136, chloride of 95, BUN of 28. Liver function test show total protein of 8.3. Lipase is 136. Abdominal CT shows possible mass present with superimposed colitis involving the sigmoid colon with upstream dilation of the small and large bowel suggesting some degree of obstruction. Case was discussed with the emergency room and decision was made to admit the patient for further evaluation. Surgery was consulted. Patient went for sigmoid colectomy with end colostomy on 11/10/2024. Tolerated procedure well. Epidural catheter placed for postoperative analgesia NG-tube removed on 11/11 started on CLD. Epidural catheter removed 11/12/2024. On regular diet Patient seen and examined. He expresses concern about being discharged home today. He reports that he has several questions regarding his ostomy bag changes and expresses concern with changes Objective - Vital Signs Vital signs: Vital Signs Temp 98.3 F 11/16/24 08:00 Pulse 96 11/16/24 08:00 Resp 16 11/16/24 08:00 BP 158/75 11/16/24 08:00 Pulse Ox 97 11/16/24 08:00 FiO2 Intake & Output 11/15/24 11/16/24 11/16/24 18:59 06:59 18:59 Intake Total 210 948 Balance 210 948 Intake: Oral 210 948 Other: Voiding Method Toilet Toilet Toilet Urinal Urinal # Voids 2 3 - Exam General: [nontoxic], [no distress], [appears at stated age] Derm: [warm], [dry] Head: [atraumatic], [normocephalic], [symmetric] Eyes: [EOMI], [no lid lag], [anicteric sclera] Mouth: [no lip lesion], [mucus membranes moist] Cardiovascular: [S1S2 reg], [no murmur] Lungs: [CTA bilateral], [no rhonchi, no rales] , [no accessory muscle use] Abdominal abdomen is soft, colostomy with liquid brown stool, bowel sounds present. Vertical surgical dressing Ext: [no gross muscle atrophy], [no edema], [no contractures] Neuro: [ CN II-XI grossly intact], [no focal neuro deficits] Psych: [Alert], [oriented], [appropriate affect] - Labs CBC & Chem 7: 11/15/24 03:22 11/15/24 03:22 Assessment and Plan Assessment: Colon obstruction status post sigmoid colectomy with end colostomy 11/10/2024 -Continue regular diet -Pain control with as needed [place], and IV ketorolac -Surgical pathology revealing benign colonic mucosa with diverticulitis inflammatory polyp with 2 benign mesenteric lymph nodes -The patient expresses concern for ostomy bag changes. Once the patient feels more comfortable with ostomy bag changes and self care he can then be discharged home lovenox 40 mg daily for DVT prophylaxis
--- NOTE | 2024-11-17 00:38 | P.PN ---
Progress Note - Text Progress Note Date: 11/16/24 CHIEF COMPLAINT: Colon obstruction HISTORY OF PRESENT ILLNESS: Patient is postop day #5 status post sigmoid colectomy with end colostomy for colonic obstruction. Patient's ostomy is functioning. He underwent his ostomy teaching. He is tolerating diet. Pain is controlled. He has anxiety about going home as he states he is not ready to manage colostomy bad, PHYSICAL EXAM: VITAL SIGNS: Reviewed. GENERAL: Well-developed in no acute distress. ABDOMEN: Soft. Nondistended. Tenderness at incision site. Surgical dressing clean dry and intact. Ostomy on the left with stool present. NEUROLOGIC: Alert and oriented. Cranial nerves II through XII grossly intact. ASSESSMENT: 1. Colonic obstruction status post sigmoid colectomy with end colostomy PLAN: -Regular Diet -Pain Control -Encourage patient to increase activity level -Encourage patient to use incentive spirometer -Continue Ensure for protein supplement -GI prophylaxis Protonix and DVT prophylaxis subcu heparin Abel Cummins DO [facility] [phone]
[2024-11-17 07:54] VITALS: BP 127/83; PULSE 103; RESP 18; TEMP 97.7
[2024-11-17] MEDS: CALCIUM CARBONATE 500 MG CHEWABLE PO PRN (10:25)
--- NOTE | 2024-11-17 12:22 | P.DS ---
Providers Date of admission: 11/09/24 14:42 Attending physician: Brandon Crawford Consults: 11/09/24 14:40 Consult Physician Routine Consulting Provider: Luke Yang Consult Reason/Comments: partial SBO, colitis, possible abd mass Do you want consulting provider notified?: Already Contacted Primary care physician: Naseem Adalgisa [facility] Hospital Course: Hospital Course: 64-year-old man with medical history of GERD, diverticulitis presented for evaluation of abdominal pain, nausea, vomiting. Patient says that approximately 2 weeks ago he started develop some left lower quadrant abdominal pain that felt similar to the previous time that he had diverticulitis. At that time he had associated symptoms of nausea, vomiting. He was prescribed some antibiotics from his primary care physician and said he felt a little bit better after taking these, is not sure which antibiotics these were. However, after discontinuation, patient started to feel ill again. He went to the emergency room on 11/06 for similar complaints and was discharged with famotidine and instructed follow-up with his primary care physician as well as GI. Unfortunately his symptoms progressed in the last 72 hours prompting patient to return to the emergency room. He reports nausea, vomiting, sweats, weight loss, poor appetite. He did have a bowel movement but it was very small in caliber. He feels bloated. In the emergency room, patient was afebrile, 156/94, heart rate 112, 100% on room air. CBC shows polycythemia to 17.6, thrombocytosis to 451. Metabolic panel shows sodium of 136, chloride of 95, BUN of 28. Liver function test show total protein of 8.3. Lipase is 136. Abdominal CT shows possible mass present with superimposed colitis involving the sigmoid colon with upstream dilation of the small and large bowel suggesting some degree of obstruction. Case was discussed with the emergency room and decision was made to admit the patient for further evaluation. Surgery was consulted. Patient went for sigmoid colectomy with end colostomy on 11/10/2024. Tolerated procedure well. Epidural catheter placed for postoperative analgesia. NG-tube removed on 11/11 started on CLD. Epidural catheter removed 11/12/2024. Currently on regular diet. Tolderating well. Discharge delayed due patient not being comfortable on how to handle the colostomy bag. Currently he is ok. Noted his LFTs went up on the last check but no repeat done. Will refer for outpatient check. Will be discharged in a stable condition. Time for discharge 36 min Patient was seen and examined on the day of discharge. Patient Condition at Discharge: Stable Plan - Discharge Summary Discharge Rx Participant: Yes New Discharge Prescriptions: New Calcium Carbonate [Tums] 1,000 mg PO TID PRN tab PRN Reason: Heartburn Acetaminophen Tab [Tylenol] 500 mg PO Q6HR tab Pantoprazole [Protonix] 40 mg PO DAILY 60 Days #60 tab Discharge Medication List Acetaminophen Tab [Tylenol] 500 mg PO Q6HR tab 11/17/24 [Rx] Calcium Carbonate [Tums] 1,000 mg PO TID PRN tab 11/17/24 [Rx] Pantoprazole [Protonix] 40 mg PO DAILY 60 Days #60 tab 11/17/24 [Rx] Follow up Appointment(s)/Referral(s): Luke Yang MD [Medical Doctor] - 1 Week Naseem Chung MD [Primary Care Provider] - 1-2 days Activity/Diet/Wound Care/Special Instructions: Ostomy: [place] flat barrier #[id number] applied with pouch #[id number]; lubricating deodorant #41691; barrier extenders #69505 Change barrier flange every 3 to 5 days and if leaking; empty pouch when half full and replace every 3 to 5 days and as needed Last changed: 11/13/2024
--- NOTE | 2024-11-17 16:17 | P.PN ---
Subjective Progress Note Date: 11/17/24 CHIEF COMPLAINT: Bowel obstruction HISTORY OF PRESENT ILLNESS: The patient is a 64-year-old male admitted for bowel obstruction status post sigmoid colectomy with colostomy for diverticulitis. He is tolerating diet however has moderate hiccups including reflux. He does report mild abdominal distention. He is having stool and flatus through his ostomy. ROS: No fevers or chills. No new chest pain. No productive sputum PHYSICAL EXAM: VITAL SIGNS: Reviewed CONSTITUTIONAL: Well developed and in no acute distress. EYES: Conjuctivae without sclera icterus. Extraocular movements grossly intact. HEAD, EARS, NOSE, THROAT: Moist buccal mucosa. Head is atraumatic, normocephalic. Hears conversational speech. No nasal drainage. RESPIRATORY: Non-labored respirations and equal bilateral excursions. CARDIOVASCULAR: Palpable 2+ radial pulses. ABDOMEN: Midline dressing clean dry intact. Ostomy with stool and flatus. No signs of infection. Mild abdominal distention. MUSCULOSKELETAL: No gross deformity of the lower extremities noted. No clubbing. No cyanosis. SKIN: Good skin turgor. Well perfused. NEUROLOGIC: Cranial nerves II through XII grossly intact. No focal or lateralizing signs. PSYCH: Appropriate affect. Alert and oriented to person, place and time. CLINICAL LABS: Reviewed. WBC within normal limits from 11/15/2024. LFTs were elevated from 11/15/2024. ASSESSMENT: 1. Large bowel obstruction due to diverticulitis PLAN: 1. Do recommend simethicone gas drops for mild abdominal distention. 2. May benefit from Reglan for hiccups. Objective - Vital Signs Vital signs: Vital Signs Temp 97.7 F 11/17/24 07:00 Pulse 103 H 11/17/24 07:00 Resp 18 11/17/24 07:00 BP 127/83 11/17/24 07:00 Pulse Ox 97 11/17/24 07:00 FiO2 Intake & Output 11/16/24 11/17/24 11/17/24 18:59 06:59 18:59 Intake Total 3765 Output Total 250 Balance 3765 -250 Intake: Oral 3765 Output: Stool 250 Other: Voiding Method Toilet Toilet Toilet # Voids 5 3 - Labs CBC & Chem 7: 11/15/24 03:22 11/15/24 03:22
== END 2024-11-17 14:20 | disposition home health service (06) | DRG 330 ==
LOC: EC 10:50 → 5NMEDONC 14:42
PROVIDERS: ADMIT Student in an Organized Health Care Education/Training Program; ATTEND Student in an Organized Health Care Education/Training Program
PROC: 0D1M0Z4 Bypass Descending Colon to Cutaneous, Open Approach (ICD-10-PCS; 2024-11-10)
PROC: 0DJD8ZZ Inspection of Lower Intestinal Tract, Via Natural or Artificial Opening Endoscopic (ICD-10-PCS; 2024-11-10)
PROC: 0DBN0ZZ Excision of Sigmoid Colon, Open Approach (ICD-10-PCS; principal; 2024-11-10 07:30)
DX: K56.690 Other partial intestinal obstruction (principal); E87.1 Hypo-osmolality and hyponatremia; K57.32 Diverticulitis of large intestine without perforation or abscess without bleeding; I10 Essential (primary) hypertension; D75.1 Secondary polycythemia; D75.839 Thrombocytosis, unspecified; K21.9 Gastro-esophageal reflux disease without esophagitis; F41.9 Anxiety disorder, unspecified; K52.9 Noninfective gastroenteritis and colitis, unspecified; Z87.891 Personal history of nicotine dependence; Z79.899 Other long term (current) drug therapy; Z88.0 Allergy status to penicillin
CPT/HCPCS: 36415; 45330; 74177; 80048; 80053; 82150; 83605; 83690; 85025; 87040; 88307; 96361; 96365; 96366; 96368; 96375; 96376; 99285